=== PATIENT | male | born 1950 | race Caucasian/White ===

== ENCOUNTER 2016-10-23 08:59 | Observation (INO) | payer OTHER, BC ==
--- NOTE | 2016-10-23 09:18 | CPEKG ---
Heart Rate: 109 RR Interval: 550 QRSD Interval: 96 QT Interval: 344 QTC Interval: 464 QRS Bingen: -72 T Wave Bingen: 24 EKG Severity - ABNORMAL ECG - EKG Impression: ATRIAL FIBRILLATION, V-RATE 83-130 EKG Impression: LEFT ANTERIOR FASCICULAR BLOCK Electronically Signed By: Fatimah Sy 23-Oct-2016 15:02:38
[2016-10-23 09:26] LABS: % IMMATURE GRANULYOCYTES 0.3 % (0.0-1.1); ABSOLUTE IMMATURE GRANULOCYTES 0.02 10^3/uL (0.00-0.10); ADD DIFF? NO; ADD MORPH? NO; ADD SCAN? NO; ATYPICAL LYMPHOCYTE FLAG 10 (0-99); FRAGMENT RBC FLAG 0 (0-99); HEMATOCRIT 45.6 % (40.0-51.0); HEMOGLOBIN 15.7 g/dL (13.7-17.5); LEFT SHIFT FLG 0 (0-99); LIPEMIA HEMOLYSIS FLAG 90 (0-99); MEAN CELL HEMOGLOBIN 31.5 pg (27.9-34.1); MEAN CELL HEMOGLOBIN CONCENTR. 34.4 g/dL (32.4-36.7); MEAN CELL VOLUME 91.4 fL (81.5-99.8); MEAN PLATELET VOLUME 9.7 fL (8.7-11.7); PLATELET CLUMPS FLAG 0 (0-99); PLATELET COUNT 213 10^3/uL (150-400); RED BLOOD CELL COUNT 4.99 10^6/uL (4.40-6.38); RED CELL DISTRIBUTION WIDTH 12.8 % (11.5-15.2)
--- NOTE | 2016-10-23 09:30 | EDPHY ---
H & P Time Seen by Provider: 10/23/16 09:27 HPI/ROS: CHIEF COMPLAINT: Palpitations HISTORY OF PRESENT ILLNESS: The patient is a 66-year-old male presenting with palpitations for the past 3 hours. Associated with vague and persistent epigastric pain. No other assoc sx and no known allev/aggrev factors. The patient has felt palpitations in the past and the palpitations resolve spontaneously within 10-20 minutes. He states his blood pressure has been elevated for the past month. He was on blood pressure medication 10 years ago, but has been off BP meds for years. He denies shortness of breath, dizziness, or chest pain. REVIEW OF SYSTEMS: A comprehensive 10 point review of systems is otherwise negative aside from elements mentioned in the history of present illness. Past Medical/Surgical History: High cholesterol, Ortho surgeries. Social History: PCP: Dr. Lopez Smoking Status: Former smoker Physical Exam: General Appearance: Alert, pleasant Eyes: Pupils equal and round, no conjunctival pallor or injection ENT, Mouth: Mucous membranes moist Neck: Normal inspection Respiratory: Lungs are clear to auscultation Cardiovascular: Irregularly irregular, tachycardic Gastrointestinal: Abdomen is soft and non-tender Neurological: A&O, nonfocal, normal gait Skin: Warm and dry, no rash Extremities: Nontender, no pedal edema Psychiatric: Mood and affect normal Constitutional: Initial Vital Signs Temperature (C) 36.6 C 10/23/16 09:03 Heart Rate 100 10/23/16 09:03 Respiratory Rate 20 10/23/16 09:03 Blood Pressure 161/93 H 10/23/16 09:03 O2 Sat (%) 94 10/23/16 09:03 O2 Delivery Mode Room Air Allergies/Adverse Reactions: No Known Allergies Allergy (Verified 10/23/16 09:02) Home Medications: Medication Instructions Recorded LAMOTRIGINE 10/23/16 SIMVASTATIN 10/23/16 Medical Decision Making - Diagnostics EKG Interpretation: The 12 lead EKG was interpreted by myself. See hard copy and/or "tracemaster" electronic copy for interpretation: Atrial fibrillation, ventricular rate 109. Imaging: Discussed imaging studies w/ call center nurse Radiologist ED Course/Re-evaluation: This pt presents in rapid Afib. IV was established, patient received 10mg Diltiazem IV. Chest x-ray is pending. CBC, BMP, and Troponin ordered. HR is in the upper 90s. Chest x-ray shows nothing acute. Lab work is unremarkable. Troponin is pending. I spoke to the hospitalist team, the patient will be admitted to Dr. Cordero, for acute rapid A-fib. - Data Points Laboratory Results: Laboratory Results 10/23/16 09:20 10/23/16 09:20 10/23/16 10/23/16 10/23/16 09:20 09:20 09:20 WBC 7.47 10^3/uL 10^3/uL (3.80-9.50) RBC 4.99 10^6/uL 10^6/uL (4.40-6.38) Hgb 15.7 g/dL g/dL (13.7-17.5) Hct 45.6 % % (40.0-51.0) MCV 91.4 fL fL (81.5-99.8) MCH 31.5 pg pg (27.9-34.1) MCHC 34.4 g/dL g/dL (32.4-36.7) RDW 12.8 % % (11.5-15.2) Plt Count 213 10^3/uL 10^3/uL (150-400) MPV 9.7 fL fL (8.7-11.7) Neut % (Auto) 57.8 % % (39.3-74.2) Lymph % (Auto) 24.9 % % (15.0-45.0) Pine % (Auto) 7.8 % % (4.5-13.0) Eos % (Auto) 8.4 % H % (0.6-7.6) Baso % (Auto) 0.8 % % (0.3-1.7) Nucleat RBC Rel Count 0.0 % % (0.0-0.2) Absolute Neuts (auto) 4.32 10^3/uL 10^3/uL (1.70-6.50) Absolute Lymphs (auto) 1.86 10^3/uL 10^3/uL (1.00-3.00) Absolute Monos (auto) 0.58 10^3/uL 10^3/uL (0.30-0.80) Absolute Eos (auto) 0.63 10^3/uL H 10^3/uL (0.03-0.40) Absolute Basos (auto) 0.06 10^3/uL 10^3/uL (0.02-0.10) Absolute Nucleated RBC 0.00 10^3/uL 10^3/uL (0-0.01) Immature Gran % 0.3 % % (0.0-1.1) Immature Gran # 0.02 10^3/uL 10^3/uL (0.00-0.10) Sodium 142 mEq/L mEq/L (134-144) Potassium 4.3 mEq/L mEq/L (3.5-5.2) Chloride 104 mEq/L mEq/L (97-110) Carbon Dioxide 26 mEq/l mEq/l (22-31) Anion Gap 12 mEq/L mEq/L (8-16) BUN 18 mg/dL mg/dL (7-23) Creatinine 0.6 mg/dL L mg/dL (0.7-1.3) Estimated GFR > 60 Glucose 100 mg/dL mg/dL (70-100) Calcium 10.0 mg/dL mg/dL (8.5-10.4) Troponin I Pending Medications Given: Discontinued Medications Diltiazem HCl (Cardizem 25 Mg/5 Ml Vial) 10 mg IVP EDNOW ONE Stop: 10/23/16 09:41 Last Admin: 10/23/16 09:53 Dose: 10 mg Departure - Departure Disposition: [facility] Inpatient Acute Clinical Impression: Rapid atrial fibrillation Condition: Good Report Scribed for: Fatimah Sy Report Scribed by: Katarina Stewart Date of Report: 10/23/16 Time of Report: 09:30 Physician Review and Approval Statement: 10/23/16 09:30 Portions of this note were transcribed by a medical care manager. I personally performed the history, physical exam, and medical decision-making; and confirmed the accuracy of the information in the transcribed note.
[2016-10-23] MEDS ORDERED: DILTIAZEM 25 MG/5 ML VIAL IVP ONE ×2 (09:40→10:12)
[2016-10-23 09:44] LABS: ANION GAP 12 mEq/L (8-16); CARBON DIOXIDE 26 mEq/l (22-31); CHLORIDE 104 mEq/L (97-110); CREATININE 0.6 mg/dL (0.7-1.3); GLOMERULAR FILTRATION RATE > 60; GLUCOSE 100 mg/dL (70-100); POTASSIUM 4.3 mEq/L (3.5-5.2); SODIUM 142 mEq/L (134-144)
[2016-10-23] MEDS ORDERED: DILTIAZEM 125 MG in D5W 125 ML IV ONE (10:06)
[2016-10-23] MEDS ORDERED: ASPIRIN 81 MG CHEWABLE TAB PO ONE (10:27)
[2016-10-23] MEDS ORDERED: ACETAMINOPHEN 325 MG TAB PO PRN (11:13)
[2016-10-23] MEDS ORDERED: ONDANSETRON 4 MG/2 ML VIAL IVP PRN (11:13)
[2016-10-23] MEDS ORDERED: ONDANSETRON DISINTEGRATING 4 MG TAB PO PRN (11:13)
[2016-10-23] MEDS ORDERED: DILTIAZEM 125 MG in D5W 125 ML IV SCH (11:30)
--- NOTE | 2016-10-23 15:01 | ECHO ---
[id number] + + [address] : : [place] [address] : : [phone] + Adult Echocardiographic Report + ---+ :Name: HELGA PROCTOR HStudy Date: 10/23/2016 01:35 PM : : Hospital Admission Number: [id number] Location: 200: :: 1950 Gender: Male Height: 73 in : :Age: 66 yrs Race: WH Weight: 250 lb : :Reason For Study: Eval LV Fx : : BSA: 2.4 meters2 : :History: New onset A-fib : + ---+ MMode/2D Measurements \T\ Calculations IVSd: 1.3 cm LVIDd: 5.1 cm FS: 38.5 % Ao root diam: 3.8 cm LVPWd: 1.5 cm LVIDs: 3.1 cm EDV(Teich): 123.4 ml ACS: 1.8 cm ESV(Teich): 38.9 ml EF(Teich): 68.5 % Normal Measurement Values: + + :LVIDd (3.5-5.7cm) IVSd (0.6-1.1cm) LVPWd (0.6-1.1cm) Aortic Root (2.0-3.7cm)Left Atrium (1.5-4.0cm): :LV Vol(d) (76-115ml) LV Vol(s) (29-48ml) Ejec Fraction (50-65%)PV Howie (0.6- 1.2m/s) TV Howie (0.4-1.0m/s) : :MV E Howie (0.8-1.0m/s)MV A Howie (0.3-1.0m/s)LVOT Howie (0.7-1.2m/s) Asc Ao Howie ( 0.9-1.8m/s) : + + Doppler Measurements \T\ Calculations MV E max howie: Ao V2 max: LV V1 max: PA V2 max: 92.8 cm/sec 138.5 cm/sec 75.5 cm/sec 82.8 cm/sec Ao max P.7 mmHg LV V1 max PG: PA max P.3 mmHg 2.7 mmHg Left Ventricle The left ventricle is normal in size. There is mild concentric left ventricular hypertrophy. The left ventricular ejection fraction is normal. There is Doppler evidence for diastolic dysfunction. Ejection Fraction = 68%. Right Ventricle The right ventricle is normal in size and function. Atria The left atrial size is normal. Right atrial size is normal. Mitral Valve The mitral valve is normal in structure and function. There is no evidence of mitral valve prolapse. There is no mitral valve stenosis. There is no mitral regurgitation noted. Tricuspid Valve Normal tricuspid valve. No tricuspid regurgitation. Aortic Valve The aortic valve is not well visualized. There is no aortic stenosis. There is no aortic insufficiency. Pulmonic Valve The pulmonic valve is not well visualized. There is no pulmonic valvular regurgitation. Great Vessels The aortic root is normal size. Pericardium/Pleural There is no pericardial effusion. Conclusion A complete two-dimensional transthoracic echocardiogram was performed (2D, M-mode, Doppler and color flow Doppler). 1. Study recorded in an irregular rhythm. 2. The left ventricle is normal in size. There is mild concentric left ventricular hypertrophy. The Ejection Fraction = 68%. 3. The mitral valve is normal in structure and function. 4. The aortic valve is not well visualized. There is no aortic stenosis. There is no aortic insufficiency. 5. There is no pericardial effusion. 6. No old studies for comparison. Final Reading Physician: Helga Regalado MD electronically signed on 10/23/2016 03:00 PM Ordering Physician: Kasey Cordero Performed By: Neri Covarrubias, CS
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
[2016-10-23] MEDS: ENOXAPARIN 100 MG/ML SYR SC SCH (20:53)
[2016-10-23] MEDS: AZELASTINE HCL NS SCH (20:53)
[2016-10-23] MEDS: FLUTICASONE NASAL 120 SPRAYS/16 GM MDI NS SCH (20:54)
[2016-10-24 04:44] LABS: ANION GAP 9 mEq/L (8-16); CALCIUM 9.6 mg/dL (8.5-10.4); CARBON DIOXIDE 26 mEq/l (22-31); CHLORIDE 103 mEq/L (97-110); CREATININE 0.6 mg/dL (0.7-1.3); GLOMERULAR FILTRATION RATE > 60; GLUCOSE 102 mg/dL (70-100); POTASSIUM 4.4 mEq/L (3.5-5.2); SODIUM 138 mEq/L (134-144)
[2016-10-24] MEDS: CHOLECALCIFEROL VIT D3 1,000 UNITS TAB PO SCH (08:08)
[2016-10-24] MEDS: ATORVASTATIN CALCIUM 10 MG TAB PO SCH (08:09)
[2016-10-24] MEDS: DILTIAZEM 30 MG TAB PO SCH ×4 (08:09→23:42)
[2016-10-24] MEDS: lamoTRIgine 100 MG TAB PO SCH (08:11)
[2016-10-24] MEDS: FLUTICASONE NASAL 120 SPRAYS/16 GM MDI NS SCH ×2 (08:12→20:41)
[2016-10-24] MEDS: AZELASTINE HCL NS SCH ×2 (08:12→20:41)
[2016-10-24] MEDS: ENOXAPARIN 100 MG/ML SYR SC SCH ×2 (08:13→20:40)
[2016-10-24] MEDS ORDERED: NON-FORMULARY NEW DRUG (Simvastatin [Zocor] 20 MG) PO SCH (09:00)
[2016-10-24] MEDS ORDERED: Herbals/Supplements -Info Only PO SCH (09:00)
--- NOTE | 2016-10-24 11:38 | HOSPPROG ---
Hospitalist Progress Note Assessment/Plan: #Atrial fibrillation: still in fib this morning. Transition to PO today. CHADSVASC2. I have spoken with he and several times and he is opting for coumadin -cont Lovenox while here. Plan for LANA-cardioversion in the morning #Benign HTN: has not been on meds for several years #Diet: regular #DVT: Lovenox, coumadin #Disp: warrant inpt admission with a fib, telemetry and cardioversion in morning Time spent counseling patient and on treatment options, 40 min Subjective: feels better, but still feels skipping beats Objective: Vital Signs Temp Pulse Resp BP Pulse Ox 36.5 C 90 12 135/92 H 95 10/24/16 07:15 10/24/16 08:09 10/24/16 07:15 10/24/16 08:09 10/24/16 07:15 Laboratory Results 10/24/16 03:12 10/23/16 10/24/16 10/25/16 05:59 05:59 05:59 Intake Total 228.8 Balance 228.8 - Physical Exam Constitutional: no apparent distress Eyes: PERRL Ears, Nose, Mouth, Throat: moist mucous membranes Cardiovascular: irregularly irregular, edema (no edema) Respiratory: no respiratory distress, no rales or rhonchi Gastrointestinal: normoactive bowel sounds Genitourinary: no bladder fullness Skin: warm Musculoskeletal: full muscle strength Neurologic: AAOx3 Psychiatric: interacting appropriately ICD10 Worksheet Patient Problems: Problems Problem Status Onset Rapid atrial fibrillation Acute
[2016-10-24 14:07] LABS: INR 1.02 (0.83-1.16); PROTIME(PATIENT) 13.3 SEC (12.0-15.0)
[2016-10-24 14:08] LABS: APTT 39.2 SEC (23.0-38.0)
[2016-10-24] MEDS ORDERED: WARFARIN SODIUM 5 MG TAB PO SCH (16:00)
[2016-10-25 04:21] LABS: INR 1.12 (0.83-1.16); PROTIME(PATIENT) 14.3 SEC (12.0-15.0)
[2016-10-25] MEDS: DILTIAZEM 30 MG TAB PO SCH (06:19)
[2016-10-25] MEDS ORDERED: DILTIAZEM CD 120 MG CAP PO SCH (09:00)
[2016-10-25] MEDS ORDERED: ETOMIDATE 20 MG/10 ML VIAL IVP ONE (09:03)
[2016-10-25] MEDS ORDERED: PROPOFOL 200 MG/20 ML VIAL IVP ONE (09:03)
[2016-10-25] MEDS ORDERED: NS 500 ML IV ONE (09:03)
[2016-10-25] MEDS ORDERED: fentaNYL 100 MCG/2 ML INJ IVP ONE (09:03)
[2016-10-25] MEDS ORDERED: MIDAZOLAM 2 MG/2 ML VIAL IVP ONE (09:03)
[2016-10-25] MEDS ORDERED: LIDOCAINE 1% 5 ML SDV ONE (09:16)
[2016-10-25] MEDS ORDERED: PROPOFOL 200 MG/20 ML VIAL ONE (09:16)
[2016-10-25] MEDS: ENOXAPARIN 100 MG/ML SYR SC SCH (09:45)
[2016-10-25] MEDS ORDERED: ATROPINE SULFATE 1 MG/10 ML SYR ONE (09:52)
--- NOTE | 2016-10-25 10:11 | GCON ---
[f rep st] CONSULTATION CARDIOLOGY CONSULTATION CHIEF COMPLAINT: Fast heartbeat. The patient is a gentleman who has come to the hospital with a rapid heartbeat. He is 66 years old. He has a history of intermittent atrial fibrillation in the past. With his atrial fibrillation, he has had feelings of just being uncomfortable. It is rapid AFib. He has had it 4 or 5 times in the past over the years, and during those times, it would last less than 5 minutes, often less than a mi nute. It never bothered him, but this time, it lasted for an hour or so, so he came into the emerge ncy room and was admitted with atrial fibrillation. He was rate controlled and he is doing fine. T he plan is for him to have LAAN and cardioversion this morning. He does not have chest pain, jaw pain, or arm pain. No pleuritic chest pain. No fever, chills, cou gh. No syncope or near-syncope. No hot, swollen joints. No rashes, photophobia, stiff neck, sore throat. No dysphagia or hoarseness. No trauma. He has a long-time history of sleep apnea. Ten years ago, he was wearing a mask for a year and a haley lf, then he felt that he did not need it any more. Then 5 years ago, he got checked again. He was told he had sleep apnea, but as long as he did not sleep on his back, he would be fine. He did stop the mask at that time, has gone 5 years without it, and just recently he has decided to get another sleep study and feels like he probably needs a mask. He does have urinary frequency at night, and he is seeing Dr. Gross about that. He has, among other issues, a constriction at the end of the urethra. He does not have BPH. He does not have upper respiratory tract symptoms. Has not had hot, swollen joints. No major rashe s. No DVT. No risk factors for DVT. No history of pulmonary embolism. He has no nausea, vomiting, diarrhea, or constipation. He has no lightheadedness. CARDIAC RISK FACTORS: Positive for hypertension recently. Cardiac risk factors are negative for fa adriano history of premature coronary artery disease, diabetes mellitus, hyperuricemia, smoking history , obesity, or dyslipidemia. He has no known coronary artery disease. PAST MEDICAL HISTORY: FAMILY HISTORY: He has no family history of premature coronary artery disease. No history of unexp lained sudden at a young age. MEDICATIONS: Listed in the computer, and currently, he is on both Coumadin and Lovenox here. The Genticeluter is down at this time. ALLERGIES: None. SURGICAL HISTORY: As noted in the chart and not repeated here. REVIEW OF SYSTEMS: A 12-point review of systems done and is negative except as noted above. SOCIAL HISTORY: He was born in [place], [place]. He is retired. 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 His hiram brown worked there. They have a place in a country up in [place], [place] [address] [place] 2[place], and they go up there a lot, enjoy it. When he is up there, he can exercise. He has no chest pain or chest discomfort. They have 2 children, a 29-year-old son who lives at home and a 31-year-old daughter in [place]. He does not smoke. He does not drink significant amounts of alcohol. PHYSICAL EXAMINATION: VITAL SIGNS: Blood pressure 110/70, heart rate 66, respiratory rate 12, temp erature 98. HEENT: Pupils equal, round, and reactive. Mucous membranes and mouth moist. NECK: S upple. CARDIOVASCULAR: S1, S2. Soft systolic murmur in left sternal border. Irregularly irregula r. No rubs. LUNGS: Rhonchi bilaterally. No rales, wheezing, or dullness. ABDOMEN: Soft, nonten vinayak, without masses. CVA: No tenderness. SKIN: Age-related changes. EXTREMITIES: No edema, inf lammation, or ulceration. NEURO: 2-12 grossly normal. Motor and sensory intact. PSYCH: No obvio us anxiety or depression. LABS: Attached. The patient's monitor shows atrial fibrillation. I cannot read his EKGs because of MediW[employer] being down right at this time. ASSESSMENT AND PLAN: 1. Atrial fibrillation. 2. Hypertension. 3. Sleep apnea. He has atrial fibrillation. We will do a LANA and cardioversion. I have talked to him and his , and they both understand there is a risk despite his anticoagulation, despite PE, that he can have a stroke. They accept that risk and want to proceed. We could easily continue with rate control an d cardiovert him in 5 weeks, however they would like to proceed, and we will cardiovert him now. He has been n.p.o. At some point, he will need risk stratification, and I would arrange for an outpatient stress test. It sounds to me like he has sleep apnea. It is a problem he is going to address. I think it is freeman y important to get this fixed. We talked about it extensively here today. He has been having hypertension the last several times that he has had his blood pressure checked. We want to keep his blood pressure below 135/85, and when he came into the hospital, it was above 14 5. This is something that will be monitored as an outpatient. He will be referred back to his [facility] doctor. If he should have significantly high blood pressure while he is here, we could sta rt treatment. At this time, all of his questions have been answered. We will proceed with cardioversion and LANA at the appropriate right time. /[id number]/MODL
--- NOTE | 2016-10-25 10:27 | CPR ---
[f rep st] NONINVASIVE CARDIAC PROCEDURE REPORT PROCEDURE PERFORMED: Cardioversion. DESCRIPTION OF PROCEDURE: The patient gave informed consent for LANA and cardioversion. With Anesthesia present, we proceeded to pass the probe without any complications into the esophagus . Imaging of the heart commenced, and we could never see the left atrial appendage very clearly. We t ried multiple positions, including to put the patient in a left lateral decubitus position to try to open up the left atrial appendage, and on the images it was never clearly seen, and no Doppler velo cities were found. We therefore finished the transesophageal echocardiographic study but did not pr oceed with cardioversion. PLAN: The patient will be discharged home and will continue with twice-a-day Lovenox until his INR is greater than 2 and then continue on Coumadin. The patient will see Dr. Elias in 4 weeks. All questions have been answered. /[id number]/MODL
[2016-10-25 11:48] VITALS: BP 110/82; PULSE 81; RESP 16; TEMP 98; O2SAT 91
[2016-10-25] MEDS: lamoTRIgine 100 MG TAB PO SCH (12:48)
[2016-10-25] MEDS: ATORVASTATIN CALCIUM 10 MG TAB PO SCH (12:48)
[2016-10-25] MEDS: CHOLECALCIFEROL VIT D3 1,000 UNITS TAB PO SCH (12:48)
[2016-10-25] MEDS: AZELASTINE HCL NS SCH (12:49)
[2016-10-25] MEDS: FLUTICASONE NASAL 120 SPRAYS/16 GM MDI NS SCH (12:50)
--- NOTE | 2016-10-25 16:23 | PDDCSUM ---
Discharge Summary Discharge Summary: DISCHARGE SUMMARY FOLLOW-UP ITEMS: Follow-up INR this Monday, get outpatient stress test and miri with DC cardioversion in 4 weeks DATE OF ADMISSION: 10/23/2016 DATE OF DISCHARGE: 10/25/2016 DISCHARGE DIAGNOSES: 1. Persistent atrial fibrillation with acute rapid ventricular response 2. Chronic hypertension CONSULTATIONS: Cardiology PROCEDURES / IMAGING: Transesophageal echocardiogram without good visualization of the left atrial appendage, no DC cardioversion performed CHIEF COMPLAINT: Acute shortness of breath and reduced exercise tolerance SUBJECTIVE: Patient reports he is feeling well, is not currently symptomatic from his AFib PHYSICAL EXAM ON DISCHARGE: Systolic blood pressure is 110, heart rate 70, afebrile overnight, satting well on room air, lungs are clear to auscultation bilaterally without any crackles or wheezes, heart rhythm is irregularly irregular without tachycardia LABS ON DISCHARGE: None HOSPITAL COURSE BY PROBLEM: 1. Persistent atrial fibrillation. Patient presented with symptomatic AFib and acute rapid ventricular response, new diagnosis. Is unclear whether his atrial fibrillation was provoked by exercise or it just became more symptomatic with exercise secondary to reduced cardiac output. He was evaluated by the cardiology service and the plan was to perform a MIRI with DC cardioversion, which extended his hospitalization. The procedure did not visualize left atrial appendage well and it was decided that he should be safely anticoagulated for 4 weeks and then pursue the procedure. He should also have outpatient evaluation for ischemia with a stress test. Should be noted that the patient's rate did respond well to IV diltiazem continuous infusion and he was transitioned over to an oral diltiazem regimen. His heart rate was in the 70-90 range with 120 mg of diltiazem continuous dosing. He will be discharged home on this dosage with Coumadin, no Lovenox bridge given that his chads Vasc score is 2 indicating that systemic anticoagulation is indicated but there is not an absolute indication for bridging therapy at this time. The patient will resume regular physical activity but will hold on significant physical exertion until he has followed and discussed with Dr. Elias. 2. Hypertension. Chronic, patient is now currently receiving diltiazem, advised the patient's did keep a blood pressure log. DISCHARGE MEDICATIONS: Please see official discharge medication reconciliation sheet in chart , diltiazem 120 mg continuous dosing once daily, Coumadin 5 mg daily. DISCHARGE INSTRUCTIONS: Patient should follow up at his [facility] this Monday, Dr. Elias thereafter. TIME SPENT: Greater than 30 minutes were spent on direct patient care, as well as discharge planning and preparation.
--- NOTE | 2016-10-26 18:02 | CPIP ---
[f rep st] INVASIVE CARDIAC PROCEDURE PROCEDURE PERFORMED: Transesophageal echocardiogram. DESCRIPTION OF PROCEDURE: The patient gave informed consent for transesophageal echocardiographic s tudy and for cardioversion. I explained to him the options and the risks and he wanted to proceed. With the anesthesia present, we passed the probe without any complications. Imaging of the heart co mmenced and we could not see the left atrial appendage clearly. We tried multiple positions, includ ing turning the patient in the left lateral decubitus position to try to open up the left atrial cira endage. It was never clearly seen and no Doppler velocities could be documented that were acceptabl e. Therefore, I did not proceed with the planned cardioversion. I explained the results to the migue cruz and his and I explained our plan of therapy. All their questions were answered. The plan at this point is the patient is going to be discharged and be taking Lovenox twice a day un til the INR is greater than 2 and continue on Coumadin. Follow up with Dr. Elias. Please see the attached transesophageal echocardiographic report that is also included in this repor t. /[id number]/MODL
== END 2016-10-25 15:19 | disposition home or self-care (01) ==
LOC: F2W 12:20
PROVIDERS: ADMIT Internal Medicine; ATTEND Internal Medicine
PROC: B245ZZ4 Ultrasonography of Left Heart, Transesophageal (ICD-10-PCS; principal; 2016-10-23)
DX: I48.91 Unspecified atrial fibrillation (principal); I10 Essential (primary) hypertension; G47.33 Obstructive sleep apnea (adult) (pediatric); Z87.891 Personal history of nicotine dependence
CPT/HCPCS: 71020; 93005; 93306; G0378; J0461; J1650; J2704

== ENCOUNTER 2016-12-06 04:52 | Emergency (ER) | payer OTHER, BC ==
[2016-12-06] MEDS ORDERED: ACETAMINOPHEN 500 MG TAB PO ONE (05:05)
[2016-12-06] MEDS ORDERED: NS 1,000 ML IV ONE ×2 (05:16→05:17)
--- NOTE | 2016-12-06 05:26 | EDPHY ---
H & P Stated Complaint: fever Time Seen by Provider: 12/06/16 05:04 HPI/ROS: HPI The patient presents with fever that has been present for the last 2 days as high as 104. His fever has been intermittent. This is associated with a general feeling of malaise and myalgias. About 1 year ago he had a urinary tract infection. He denies any irritative voiding symptoms currently. He does not have a cough, vomiting, diarrhea, rash. He denies any recent travel or sick contacts. He did get a few mosquito bites the other day. REVIEW OF SYSTEMS Constitutional: See HPI Eyes: No discharge. ENT: No sore throat. Cardiovascular: No chest pain, no palpitations. Respiratory: No cough, no shortness of breath. Gastrointestinal: No abdominal pain, no vomiting. Genitourinary: No hematuria. Musculoskeletal: No back pain. Skin: No rashes. Neurological: No headache. PMHx: Atrial fibrillation with recent hospital admission, on Coumadin, hypertension Soc Hx: Lives at home with his PHYSICAL General Appearance: Alert, no distress Eyes: Pupils equal and round no pallor or injection ENT, Mouth: Mucous membranes moist Respiratory: There are no retractions, lungs are clear to auscultation Cardiovascular: Regular rate and rhythm Gastrointestinal: Abdomen is soft and non-tender, no masses, bowel sounds normal Neurological: A&O, moves all extremities Skin: Warm and dry, no rashes Musculoskeletal: Neck is supple non tender Extremities: symmetrical, full range of motion Psychiatric: Patient is oriented X 3, there is no agitation Source: Patient Exam Limitations: No limitations - Personal History Current Tetanus/Diphtheria Vaccine: Yes Tetanus Vaccine Date: < 10 years - Medical/Surgical History Hx Asthma: No Hx Chronic Respiratory Disease: No Hx Diabetes: No Hx Cardiac Disease: No Hx Renal Disease: No Hx Cirrhosis: No Hx Alcoholism: No Hx HIV/AIDS: No Hx Splenectomy or Spleen Trauma: No Other PMH: PSHx: left knee surgery, colonoscopies, endoscopies, right hand surgery. PMHx: high cholesterol - Social History Smoking Status: Former smoker Constitutional: Initial Vital Signs Temperature (C) 39.1 C H 12/06/16 04:56 Heart Rate 99 12/06/16 04:56 Respiratory Rate 16 12/06/16 04:56 Blood Pressure 125/63 H 12/06/16 04:56 O2 Sat (%) 91 L 12/06/16 04:56 O2 Delivery Mode Room Air Allergies/Adverse Reactions: No Known Allergies Allergy (Verified 10/23/16 09:02) Home Medications: Medication Instructions Recorded Azelastine HCl 1 spray NS BID 10/23/16 Cholecalciferol Vit D3 [Vitamin D3 1,000 units PO DAILY 10/23/16 (*)] FLUTICASONE PROPIONATE 1 spray NS BID 10/23/16 Herbals/Supplements -Info Only 1 ea PO DAILY 10/23/16 LAMOTRIGINE 200 mg PO DAILY 10/23/16 SIMVASTATIN [Zocor] 20 mg PO DAILY 10/23/16 Diltiazem Cd [Cardizem ER 120 MG 120 mg PO DAILY #30 cap 10/25/16 (*)] Warfarin Sodium 5 mg PO DAILY16 #30 tablet 10/25/16 levOFLOXACIN [levAQUIN (*)] 500 mg PO DAILY #14 tab 12/06/16 Medical Decision Making - Diagnostics Imaging Results: Chest x-ray two view shows no infiltrate, no effusion, interpreted by me, radiology interpretation is pending. Differential Diagnosis: This is a 66-year-old man with atrial fibrillation and hypertension who presents from home with several days of fever as high as 104. He has myalgias and generalized malaise, though does not have any other localizing signs or symptoms. Differential diagnosis includes urinary tract infection, pneumonia, viral illness. In the emergency room, the patient received 2 L IV fluid bolus, Tylenol and ibuprofen with improvement in his fever. Labs were checked which did reveal signs of urinary tract infection. I have reviewed his prior urine cultures and will treat him accordingly. I will start him on ceftriaxone here and send him with a prescription for Levaquin. He is feeling well enough to go home. He is followed by a urologist, however cannot recall his name. I instructed him to follow up with the urologist and return to the ER if he is worse in any way. - Data Points Laboratory Results: Laboratory Results 12/06/16 05:24 12/06/16 05:24 12/06/16 12/06/16 12/06/16 05:30 05:24 05:24 WBC RBC Hgb Hct MCV MCH MCHC RDW Plt Count MPV Neut % (Auto) Lymph % (Auto) Antelope % (Auto) Eos % (Auto) Baso % (Auto) Nucleat RBC Rel Count Absolute Neuts (auto) Absolute Lymphs (auto) Absolute Monos (auto) Absolute Eos (auto) Absolute Basos (auto) Absolute Nucleated RBC Immature Gran % Immature Gran # PT 29.9 SEC H SEC (12.0-15.0) INR 2.81 H (0.83-1.16) APTT 44.4 SEC H SEC (23.0-38.0) VBG Lactic Acid Sodium 139 mEq/L mEq/L (134-144) Potassium 3.6 mEq/L mEq/L (3.5-5.2) Chloride 104 mEq/L mEq/L (97-110) Carbon Dioxide 22 mEq/l mEq/l (22-31) Anion Gap 13 mEq/L mEq/L (8-16) BUN 13 mg/dL mg/dL (7-23) Creatinine 0.8 mg/dL mg/dL (0.7-1.3) Estimated GFR > 60 Glucose 127 mg/dL H mg/dL (70-100) Calcium 9.0 mg/dL mg/dL (8.5-10.4) Urine Color REJI Urine Appearance MODERATELY TURBID Urine pH 5.0 (5.0-7.5) Ur Specific Elba 1.024 (1.002-1.030) Urine Protein 2+ H (NEGATIVE) Urine Ketones NEGATIVE (NEGATIVE) Urine Blood 2+ H (NEGATIVE) Urine Nitrate NEGATIVE (NEGATIVE) Urine Bilirubin NEGATIVE (NEGATIVE) Urine Urobilinogen 2.0 EU H EU (0.2-1.0) Ur Leukocyte Esterase 2+ H (NEGATIVE) Urine RBC 50-182 /hpf H /hpf (0-3) Urine WBC 50-182 /hpf H /hpf (0-3) Ur Epithelial Cells TRACE /lpf /lpf (NONE-1+) Urine Bacteria 4+ /hpf H /hpf (NONE SEEN) Urine Mucus 4+ /lpf H /lpf (NONE-1+) Urine Glucose NEGATIVE (NEGATIVE) 12/06/16 12/06/16 05:24 05:24 WBC 10.23 10^3/uL H 10^3/uL (3.80-9.50) RBC 4.59 10^6/uL 10^6/uL (4.40-6.38) Hgb 14.5 g/dL g/dL (13.7-17.5) Hct 41.6 % % (40.0-51.0) MCV 90.6 fL fL (81.5-99.8) MCH 31.6 pg pg (27.9-34.1) MCHC 34.9 g/dL g/dL (32.4-36.7) RDW 12.8 % % (11.5-15.2) Plt Count 139 10^3/uL L 10^3/uL (150-400) MPV 10.1 fL fL (8.7-11.7) Neut % (Auto) 94.6 % H % (39.3-74.2) Lymph % (Auto) 2.8 % L % (15.0-45.0) Antelope % (Auto) 1.5 % L % (4.5-13.0) Eos % (Auto) 0.2 % L % (0.6-7.6) Baso % (Auto) 0.3 % % (0.3-1.7) Nucleat RBC Rel Count 0.0 % % (0.0-0.2) Absolute Neuts (auto) 9.68 10^3/uL H 10^3/uL (1.70-6.50) Absolute Lymphs (auto) 0.29 10^3/uL L 10^3/uL (1.00-3.00) Absolute Monos (auto) 0.15 10^3/uL L 10^3/uL (0.30-0.80) Absolute Eos (auto) 0.02 10^3/uL L 10^3/uL (0.03-0.40) Absolute Basos (auto) 0.03 10^3/uL 10^3/uL (0.02-0.10) Absolute Nucleated RBC 0.00 10^3/uL 10^3/uL (0-0.01) Immature Gran % 0.6 % % (0.0-1.1) Immature Gran # 0.06 10^3/uL 10^3/uL (0.00-0.10) PT INR APTT VBG Lactic Acid 1.2 mmol/L mmol/L (0.7-2.1) Sodium Potassium Chloride Carbon Dioxide Anion Gap BUN Creatinine Estimated GFR Glucose Calcium Urine Color Urine Appearance Urine pH Ur Specific Elba Urine Protein Urine Ketones Urine Blood Urine Nitrate Urine Bilirubin Urine Urobilinogen Ur Leukocyte Esterase Urine RBC Urine WBC Ur Epithelial Cells Urine Bacteria Urine Mucus Urine Glucose Medications Given: Discontinued Medications Acetaminophen (Tylenol) 1,000 mg PO EDNOW ONE Stop: 12/06/16 05:06 Last Admin: 12/06/16 05:17 Dose: 1,000 mg Sodium Chloride (Ns) 1,000 mls @ 0 mls/hr IV ONCE ONE; Wide Open PRN Reason: Protocol Stop: 12/06/16 05:17 Last Admin: 12/06/16 05:25 Dose: 1,000 mls Sodium Chloride (Ns) 1,000 mls @ 0 mls/hr IV ONCE ONE; Wide Open PRN Reason: Protocol Stop: 12/06/16 05:18 Last Admin: 12/06/16 05:30 Dose: 1,000 mls Ceftriaxone Sodium/Dextrose (Rocephin 1 Gm (Premix)) 50 mls @ 100 mls/hr IV EDNOW ONE PRN Reason: Protocol Stop: 12/06/16 07:07 Last Admin: 12/06/16 06:45 Dose: 50 mls Departure - Departure Disposition: Home, Routine, Self-Care Clinical Impression: UTI (urinary tract infection) Qualifiers: Urinary tract infection type: site unspecified Hematuria presence: without hematuria Qualified Code(s): N39.0 - Urinary tract infection, site not specified Condition: Good Instructions: Urinary Tract Infection in Men (ED) Additional Instructions: Please make sure to drink plenty of fluids. You can take ibuprofen 400 mg with acetaminophen 1 g every 6 hours as needed for fever. Take the antibiotic as prescribed. If your worse in any way, please return to the emergency room. Otherwise, you can follow up with your urologist. The antibiotic I am prescribing, may interact with your Coumadin, thus you should have your INR checked while on the medication. Referrals: Eli Ludwig MD [Primary Care Provider] - As per Instructions Prescriptions: levOFLOXACIN [levAQUIN (*)] 500 mg PO DAILY #14 tab
[2016-12-06 05:38] LABS: % IMMATURE GRANULYOCYTES 0.6 % (0.0-1.1); ABSOLUTE IMMATURE GRANULOCYTES 0.06 10^3/uL (0.00-0.10); ADD DIFF? NO; ADD MORPH? NO; ADD SCAN? YES; ATYPICAL LYMPHOCYTE FLAG 0 (0-99); FRAGMENT RBC FLAG 0 (0-99); HEMATOCRIT 41.6 % (40.0-51.0); HEMOGLOBIN 14.5 g/dL (13.7-17.5); LIPEMIA HEMOLYSIS FLAG 90 (0-99); MEAN CELL HEMOGLOBIN 31.6 pg (27.9-34.1); MEAN CELL HEMOGLOBIN CONCENTR. 34.9 g/dL (32.4-36.7); MEAN CELL VOLUME 90.6 fL (81.5-99.8); MEAN PLATELET VOLUME 10.1 fL (8.7-11.7); PLATELET CLUMPS FLAG 0 (0-99); PLATELET COUNT 139 10^3/uL (150-400); RED BLOOD CELL COUNT 4.59 10^6/uL (4.40-6.38); RED CELL DISTRIBUTION WIDTH 12.8 % (11.5-15.2)
[2016-12-06 05:48] LABS: LEFT SHIFT FLG 130 (0-99)
[2016-12-06 05:54] LABS: ANION GAP 13 mEq/L (8-16); CARBON DIOXIDE 22 mEq/l (22-31); CHLORIDE 104 mEq/L (97-110); CREATININE 0.8 mg/dL (0.7-1.3); GLOMERULAR FILTRATION RATE > 60; GLUCOSE 127 mg/dL (70-100); POTASSIUM 3.6 mEq/L (3.5-5.2); SODIUM 139 mEq/L (134-144)
[2016-12-06 06:21] LABS: INR 2.81 (0.83-1.16); PROTIME(PATIENT) 29.9 SEC (12.0-15.0)
[2016-12-06 06:22] LABS: APTT 44.4 SEC (23.0-38.0)
[2016-12-06 06:23] LABS: SCAN NEGATIVE
[2016-12-06 06:35] LABS: COLOR AMBER; LEUKOCYTE ESTERASE,URINE 2+ (NEGATIVE); NITRITE,URINE NEGATIVE (NEGATIVE)
[2016-12-06 06:37] LABS: BACTERIA 4+ /hpf (NONE SEEN); MUCUS 4+ /lpf (NONE-1+); RBC,URINE 50-182 /hpf (0-3); WBC,URINE 50-182 /hpf (0-3)
[2016-12-06 07:39] VITALS: BP 115/65; PULSE 76; RESP 16; TEMP 98.4; O2SAT 92
== END 2016-12-06 07:38 | disposition home or self-care (01) ==
DX: N39.0 Urinary tract infection, site not specified (principal); B96.20 Unspecified Escherichia coli [E. coli] as the cause of diseases classified elsewhere; R53.81 Other malaise; I10 Essential (primary) hypertension; Z79.01 Long term (current) use of anticoagulants; Z87.891 Personal history of nicotine dependence
CPT/HCPCS: 71020; 96361; 96365; 99284; J0696

== ENCOUNTER 2016-12-06 19:00 | Inpatient (IN) | payer OTHER, BC ==
[2016-12-06] MEDS ORDERED: ACETAMINOPHEN 500 MG TAB PO ONE (19:14)
--- NOTE | 2016-12-06 19:32 | EDPHY ---
H & P Stated Complaint: Tx for UTI this am, continued fever today, has urologist Time Seen by Provider: 12/06/16 19:30 - Personal History Current Tetanus/Diphtheria Vaccine: Yes Tetanus Vaccine Date: < 10 years - Medical/Surgical History Hx Asthma: No Hx Chronic Respiratory Disease: No Hx Diabetes: No Hx Cardiac Disease: No Hx Renal Disease: No Hx Cirrhosis: No Hx Alcoholism: No Hx HIV/AIDS: No Hx Splenectomy or Spleen Trauma: No Other PMH: PSHx: left knee surgery, colonoscopies, endoscopies, right hand surgery. PMHx: high cholesterol, afib with RVR - Social History Smoking Status: Former smoker Constitutional: Initial Vital Signs Temperature (C) 37.9 C 12/06/16 19:11 Heart Rate 90 12/06/16 19:11 Respiratory Rate 16 12/06/16 19:11 Blood Pressure 113/67 12/06/16 19:11 O2 Sat (%) 92 12/06/16 19:11 O2 Delivery Mode Room Air Allergies/Adverse Reactions: No Known Allergies Allergy (Verified 10/23/16 09:02) Home Medications: Medication Instructions Recorded Azelastine HCl 1 spray NS BID 10/23/16 Cholecalciferol Vit D3 [Vitamin D3 1,000 units PO DAILY 10/23/16 (*)] FLUTICASONE PROPIONATE 1 spray NS BID 10/23/16 Herbals/Supplements -Info Only 1 ea PO DAILY 10/23/16 LAMOTRIGINE 200 mg PO DAILY 10/23/16 SIMVASTATIN [Zocor] 20 mg PO DAILY 10/23/16 Diltiazem Cd [Cardizem ER 120 MG 120 mg PO DAILY #30 cap 10/25/16 (*)] Warfarin Sodium 5 mg PO DAILY16 #30 tablet 10/25/16 levOFLOXACIN [levAQUIN (*)] 500 mg PO DAILY #14 tab 12/06/16 Medical Decision Making ED Course/Re-evaluation: CHIEF COMPLAINT: Fever HISTORY OF PRESENT ILLNESS: 66-year-old gentleman who was here this morning. Was diagnosed with a urinary tract infection and appropriately given ceftriaxone and oral Levaquin. Later in the day his blood cultures came back with 4+ gram-negative rods turning out to be E coli. We called the patient back to check on him he still was not feeling very well and he was still fairly febrile. He decided to come back for further evaluation. I had a long discussion with the patient and his and he would prefer to be admitted since he is really not feeling well. In addition he has limited ability to take nonsteroidals for his fever since he is on anticoagulants. Also, he was scheduled few weeks ago for a urologic procedure because he is having poor urine flow. Does not appear to be his prostate appears to be some sort of stricture in his urethra. That procedure was postponed because he developed atrial fibrillation needed to be anticoagulated. Most likely the stagnant urine has led to the prostatitis. REVIEW OF SYSTEMS: A 10 point review of systems was performed and is negative with the exception of the elements mentioned in the history of present illness. PHYSICAL EXAM: HR, BP, O2 Sat, RR. Temp noted General Appearance: Alert, well hydrated, appropriate, and non-toxic appearing. Head: Atraumatic without scalp tenderness or obvious injury Eyes: Pupils equal, round, reactive to light and accommodation, EOMI, no trauma , no injection. Ears: Clear bilaterally, no perforation, normal landmarks Nose: Atraumatic, no rhinorrhea, clear. Throat: There is no erythema or exudates, no lesions, normal tonsils, mucus membranes moist. Neck: Supple, 2+ carotid upstroke, nontender, no lymphadenopathy. Respiratory: No retractions, no distress, no wheezes, and no accessory muscle use. Lungs are clear to auscultation bilaterally. Cardiovascular: Regular rate and rhythm, no murmurs, rubs, or gallops. Bilateral carotid, radial, dorsalis pedis, and posterior tibial pulses intact. Good capillary refill all extremities. Gastrointestinal: Abdomen is soft, nontender, non-distended, no masses, no rebound, no guarding, no peritoneal signs. Musculoskeletal: Normal active ROM of all extremities, atraumatic. Neurological: Alert, appropriate, and interactive. The patient has normal DTRs and non-focal cranial nerves, motor, sensory, and cerebellar exam. Skin: No rashes, good turgor, no nodules on palpation. Past medical history: Hypertension, atrial fibrillation although he has been in normal sinus rhythm for 2 weeks Past surgical history: Noncontributory Family history: Noncontributory Social history: , employed, does not abuse tobacco drugs or alcohol DIFFERENTIAL DIAGNOSIS: The differential diagnosis for the patient's fever included but was not limited to pneumonia, urinary tract infection, viral syndrome, meningitis, and sepsis. MEDICAL DECISION MAKING: This patient has positive urine this morning and positive blood cultures that came back this afternoon. He has E coli bacteremia. In addition, he does have a urethral stricture or partial obstruction which will require surgery and most likely is contributing to his propensity to develop infection. Will give him 1 more dose of ceftriaxone now. His last dose was 1g 12 hours ago. We will admit him to the hospitalist with Urology consulting. He sees Dr. Abner Gross. Will call to consult. 20:10 Spoke with hospitalist service. Dr. Washington accepts admission for bacteremia. 20:[address] Crawford, urologist corporation secretary. Urology will consult. - Data Points Medications Given: Discontinued Medications Acetaminophen (Tylenol) 1,000 mg PO EDNOW ONE Stop: 12/06/16 19:15 Last Admin: 12/06/16 19:21 Dose: 1,000 mg Departure - Departure Disposition: [facility] Inpatient Acute Clinical Impression: Prostatitis, acute, E coli bacteremia Urethral stricture Qualifiers: Urethral stricture type: other stricture Qualified Code(s): N35.8 - Other urethral stricture Condition: Fair Referrals: Eli Ludwig MD [Primary Care Provider] - As per Instructions Report Scribed for: Pollo Fabian Report Scribed by: Tejal Hernandez Date of Report: 12/06/16 Time of Report: 20:16
[2016-12-06] MEDS ORDERED: ONDANSETRON 4 MG/2 ML VIAL IVP PRN (20:45)
[2016-12-06] MEDS ORDERED: ONDANSETRON DISINTEGRATING 4 MG TAB PO PRN (20:45)
[2016-12-06] MEDS ORDERED: NS W/ 20 KCl/L 1,000 ML IV SCH (20:45)
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
[2016-12-06] MEDS: AZELASTINE HCL NS SCH (22:18)
[2016-12-07] MEDS: ACETAMINOPHEN 325 MG TAB PO PRN ×3 (00:16→18:53)
[2016-12-07 05:52] LABS: INR 2.38 (0.83-1.16); PROTIME(PATIENT) 26.2 SEC (12.0-15.0)
[2016-12-07 06:02] LABS: ADD MORPH? NO; ADD SCAN? YES; ATYPICAL LYMPHOCYTE FLAG 0 (0-99); FRAGMENT RBC FLAG 0 (0-99); HEMATOCRIT 36.1 % (40.0-51.0); HEMOGLOBIN 12.6 g/dL (13.7-17.5); LIPEMIA HEMOLYSIS FLAG 90 (0-99); MEAN CELL HEMOGLOBIN 31.8 pg (27.9-34.1); MEAN CELL HEMOGLOBIN CONCENTR. 34.9 g/dL (32.4-36.7); MEAN CELL VOLUME 91.2 fL (81.5-99.8); MEAN PLATELET VOLUME 10.3 fL (8.7-11.7); PLATELET CLUMPS FLAG 10 (0-99); PLATELET COUNT 102 10^3/uL (150-400); RED BLOOD CELL COUNT 3.96 10^6/uL (4.40-6.38); RED CELL DISTRIBUTION WIDTH 13.1 % (11.5-15.2)
[2016-12-07 06:17] LABS: LEFT SHIFT FLG 210 (0-99)
[2016-12-07 06:18] LABS: ANION GAP 11 mEq/L (8-16); CARBON DIOXIDE 21 mEq/l (22-31); CHLORIDE 105 mEq/L (97-110); CREATININE 0.7 mg/dL (0.7-1.3); GLOMERULAR FILTRATION RATE > 60; GLUCOSE 105 mg/dL (70-100); MAGNESIUM 1.8 mg/dL (1.6-2.3); POTASSIUM 3.6 mEq/L (3.5-5.2); SODIUM 137 mEq/L (134-144)
[2016-12-07 06:30] LABS: ADD DIFF? YES; SCAN POSITIVE
[2016-12-07 06:36] LABS: PLATELET ESTIMATE DECREASED (ADEQ)
[2016-12-07] MEDS ORDERED: Herbals/Supplements -Info Only PO SCH (09:00)
[2016-12-07] MEDS ORDERED: ENOXAPARIN 40 MG/0.4 ML SYR SC SCH (09:00)
[2016-12-07] MEDS: AZELASTINE HCL NS SCH ×2 (09:16→20:59)
[2016-12-07] MEDS: lamoTRIgine 100 MG TAB PO SCH (09:18)
[2016-12-07] MEDS: DILTIAZEM CD 120 MG CAP PO SCH (09:18)
[2016-12-07] MEDS: ATORVASTATIN CALCIUM 10 MG TAB PO SCH (09:18)
--- NOTE | 2016-12-07 11:13 | SOAPPROG ---
SOAP Progress Note Assessment/Plan: Assessment: Probable E. coli bacteremia, likely of urinary tract source. Plan: No acute intervention is warranted. Full consult to follow. Objective: Vital Signs Temp Pulse Resp BP Pulse Ox 37.8 C 74 24 H 111/54 L 90 L 12/07/16 07:30 12/07/16 07:30 12/07/16 07:30 12/07/16 07:30 12/07/16 07:30 Laboratory Results 12/07/16 05:00 12/07/16 05:00 12/06/16 12/07/16 12/08/16 05:59 05:59 05:59 Output Total 400 Balance -400 PT 26.2 SEC (12.0-15.0) H 12/07/16 05:00 INR 2.38 (0.83-1.16) H 12/07/16 05:00 ICD10 Worksheet Patient Problems: Problems Problem Status Onset E coli bacteremia Acute Prostatitis, acute Acute Urethral stricture Acute Rapid atrial fibrillation Acute
--- NOTE | 2016-12-07 11:27 | HOSPPROG ---
Hospitalist Progress Note Assessment/Plan: #E coli bacteremia: urinary source. No e/o abscess. Awaiting sensitivities. Cont IV CTX. Appreciate ID, urology consult -If sensitive, can DC on FQ #Fever: due to above #Paroxysmal a fib: NSR. Coumadin/Dilt #h/o ureteral stricture: no intervention warranted #Benign HTN: stable #HLD:statin #Diet: regular #DVT ppx: coumadin #Disp: warrants inpatient admission with bacteremia, IV abx. May DC tomorrow Subjective: fatigued Objective: Vital Signs Temp Pulse Resp BP Pulse Ox 37.8 C 74 24 H 111/54 L 90 L 12/07/16 07:30 12/07/16 07:30 12/07/16 07:30 12/07/16 07:30 12/07/16 07:30 Laboratory Results 12/07/16 05:00 12/07/16 05:00 12/06/16 12/07/16 12/08/16 05:59 05:59 05:59 Output Total 400 Balance -400 PT 26.2 SEC (12.0-15.0) H 12/07/16 05:00 INR 2.38 (0.83-1.16) H 12/07/16 05:00 - Physical Exam Constitutional: no apparent distress (sitting up in chair eating breakfast) Eyes: PERRL Ears, Nose, Mouth, Throat: moist mucous membranes, hearing normal Cardiovascular: regular rate and rhythym, no murmur, rub, or gallop Respiratory: no respiratory distress, no rales or rhonchi Gastrointestinal: normoactive bowel sounds, soft, non-tender abdomen Genitourinary: no bladder fullness, no bladder tenderness Skin: warm, normal color Musculoskeletal: full muscle strength Neurologic: AAOx3, CN II-XII Intact Psychiatric: interacting appropriately ICD10 Worksheet Patient Problems: Problems Problem Status Onset E coli bacteremia Acute Prostatitis, acute Acute Urethral stricture Acute Rapid atrial fibrillation Acute
[2016-12-07 15:39] VITALS: RESP 16
[2016-12-07] MEDS ORDERED: WARFARIN SODIUM 5 MG TAB PO SCH (16:00)
--- NOTE | 2016-12-08 01:00 | GCON ---
[f rep st] CONSULTATION DATE OF CONSULTATION: 12/07/2016 REFERRING PHYSICIAN: Rudy Washington MD REASON FOR CONSULTATION: Gram-negative chandrakant bacteremia. HISTORY OF PRESENT ILLNESS: 66-year-old male presents with acute fever with temps as high as 104 for the last couple days. Patient initially presented to the emergency room at 5 a.m. on 12/06 and returned with ongoing fever that evening, and subsequently was found to have gram-negative chandrakant bacteremia and was admitted for observation. Patient reports significant improvement in his symptoms. Patient has received daily doses of ceftriaxone, started 12/06/2016. He was discharged with a course of levofloxacin 500 mg daily, but he has not started this medicine. Patient reports significant improvement in symptoms today and desires discharge today. PAST MEDICAL HISTORY: Urethral narrowing, obstructive sleep apnea, hyperlipidemia, and depression. Atrial fibrillation with recent hospital admission, started on Coumadin. Hyperlipidemia. SOCIAL HISTORY: Former tobacco. He lives at home with his right outside of [place]. PAST SURGICAL HISTORY: Left knee surgery. Right hand surgery. FAMILY HISTORY: Reviewed and noncontributory. ALLERGIES: NKDA. MEDICATIONS: Include azelastine nasal spray, Lipitor 10 mg daily, ceftriaxone 1 g IV daily, Lamictal 200 mg daily, Cardizem 120 mg daily, Zofran as needed, Coumadin alternating doses of 5 and 7.5 daily. REVIEW OF SYSTEMS: : Patient denies increased nocturia, irritative urinary symptoms, decreased urinary output, flank pain. Patient does not perform self- catheterizations. A complete 10-point review of systems was performed and is negative except as mentioned in the HPI. PHYSICAL EXAMINATION: VITAL SIGNS: Blood pressure 111/54, heart rate is 74, respiratory rate 17, saturation 93% on room air. His vital signs have been stable throughout hospital course. His T current is 37.8. T-max is 39. GENERAL: This is a very well-appearing male with fluent speech, sitting up in bed. HEENT: Fair dentition. Moist mucous membranes. NECK: Supple. No lymphadenopathy. CARDIOVASCULAR: Regular rate. No murmurs. Specifically, patient was not in atrial fibrillation. CHEST: Clear to auscultation bilaterally. ABDOMEN: Slightly obese, soft, nontender. Bowel sounds are present. No suprapubic tenderness. : No Mari was in place. EXTREMITIES: No clubbing, cyanosis, or edema. NEUROLOGIC: He is alert and oriented x4. Moving all 4 extremities equally and grossly cranial nerves were intact. LABORATORY DATA: White count 6.6, hematocrit 36, platelets of 102, 59% neutrophils, 28% bands. Creatinine is 0.7. Urinalysis showed 2+ protein, 2+ leukocyte esterase, 50-182 RBCs, 50-182 WBCs. INR was 2.38. IMAGING DATA: Abdominal ultrasound was performed which showed no hydronephrosis of the right kidney. ASSESSMENT AND PLAN: 66-year-old male with a history of urethral stenosis and benign prostatic hypertrophy, presents with fever in the absence of localizing symptoms. Patient subsequently found to have bacteremia with noted pyuria suspicious for urinary source. No evidence of obstruction on abdominal ultrasound. Preliminarily gram-negative chandrakant identified as Escherichia coli. RECOMMENDATIONS: 1. Await susceptibilities of E coli and continue IV ceftriaxone until that time. 2. Would repeat blood cultures tomorrow morning. 3. Likely discharge on p.o. antibiotics if susceptible to fluoroquinolones. 4. Reviewed side effects of fluoroquinolones, including tendinopathy, interactions with cations such as calcium, magnesium and zinc, and interaction with Coumadin with prolonged INR and need for increased monitoring. Patient and his were present during education. Time was 75 minutes, greater than 50% time spent with education and counseling. Thank you for this consultation. Will continue to see on a daily basis. /[id number]/MODL MTDD
[2016-12-08] MEDS: ACETAMINOPHEN 325 MG TAB PO PRN (05:03)
[2016-12-08 05:46] LABS: % IMMATURE GRANULYOCYTES 0.4 % (0.0-1.1); ABSOLUTE IMMATURE GRANULOCYTES 0.02 10^3/uL (0.00-0.10); ADD DIFF? NO; ADD MORPH? NO; ADD SCAN? YES; ATYPICAL LYMPHOCYTE FLAG 0 (0-99); FRAGMENT RBC FLAG 0 (0-99); HEMATOCRIT 36.4 % (40.0-51.0); HEMOGLOBIN 12.7 g/dL (13.7-17.5); LIPEMIA HEMOLYSIS FLAG 90 (0-99); MEAN CELL HEMOGLOBIN 31.8 pg (27.9-34.1); MEAN CELL HEMOGLOBIN CONCENTR. 34.9 g/dL (32.4-36.7); MEAN CELL VOLUME 91.2 fL (81.5-99.8); MEAN PLATELET VOLUME 9.8 fL (8.7-11.7); PLATELET CLUMPS FLAG 0 (0-99); PLATELET COUNT 114 10^3/uL (150-400); RED BLOOD CELL COUNT 3.99 10^6/uL (4.40-6.38)
[2016-12-08 05:55] LABS: INR 1.98 (0.83-1.16); PROTIME(PATIENT) 22.6 SEC (12.0-15.0)
[2016-12-08 06:11] LABS: LEFT SHIFT FLG 160 (0-99)
[2016-12-08 06:52] LABS: SCAN NEGATIVE
[2016-12-08 07:41] VITALS: BP 108/75; PULSE 64; TEMP 98; O2SAT 95
--- NOTE | 2016-12-08 08:50 | HOSPPROG ---
Hospitalist Progress Note Assessment/Plan: #E coli bacteremia: urinary source. No e/o abscess. Awaiting sensitivities. Cont IV CTX. Appreciate ID, urology consult -DC on LQ #Fever: due to above #Paroxysmal a fib: NSR. Coumadin/Dilt. INR check monday with LQ on board #h/o ureteral stricture: no intervention warranted #Benign HTN: stable #HLD:statin #Diet: regular #DVT ppx: coumadin #Disp: DC today Subjective: no acute events Objective: Vital Signs Temp Pulse Resp BP Pulse Ox 36.7 C 64 16 108/75 95 12/08/16 07:40 12/08/16 07:40 12/08/16 00:00 12/08/16 07:40 12/08/16 07:40 Laboratory Results 12/08/16 05:32 12/07/16 12/08/16 12/09/16 05:59 05:59 05:59 Intake Total 2500 Output Total 1600 Balance 900 PT 22.6 SEC (12.0-15.0) H 12/08/16 05:32 INR 1.98 (0.83-1.16) H 12/08/16 05:32 - Physical Exam Constitutional: no apparent distress Eyes: PERRL Ears, Nose, Mouth, Throat: moist mucous membranes, hearing normal Cardiovascular: regular rate and rhythym, no murmur, rub, or gallop Respiratory: no respiratory distress, no rales or rhonchi Gastrointestinal: normoactive bowel sounds, soft, non-tender abdomen Genitourinary: no bladder fullness, no bladder tenderness Skin: warm Musculoskeletal: full muscle strength Neurologic: AAOx3, CN II-XII Intact ICD10 Worksheet Patient Problems: Problems Problem Status Onset E coli bacteremia Acute Prostatitis, acute Acute Rapid atrial fibrillation Acute Urethral stricture Acute
--- NOTE | 2016-12-08 09:22 | PCMIDPN ---
Assessment/Plan: E coli bacteremia, urinary source with likely contribution of underlying anatomic abnormality, urethral stricture. Blood cultures collected this a.m. to demonstrate clearance. Patient does not have to wait for blood cultures for discharge. E coli was shown to be gallagher susceptible -- recommend a total of 14 days of antibiotics. He already has levofloxacin 500 mg (14 tabs), would take 1.5 tablets for 9 days and prescribed 3 more days levofloxacin 750 -- close follow-up in anticoagulation clinic -- follow up with Urology -- no ID follow-up needed although patient provided a contact number for questions regarding side effects of antibiotic Discussed possible side effects of Levofloxacin, including photosensitivity, and interaction with cations including calcium, zinc and magnesium. Patient is also advised to take with small amount food to minimize risk of nausea and avoid significant sun exposure by wearing hat, sunscreen. also reviewed the rare complication of tendinopathy. Review typical side effects of antibiotics, rash, fever, diarrhea. Warned patient to look for warning size of 3 or more loose stools a day and abdominal cramping and risk of C diff Subjective: patient feeling well, no urinary symptoms Objective: Vital Signs Temp Pulse Resp BP Pulse Ox 36.7 C 64 16 108/75 95 12/08/16 07:40 12/08/16 07:40 12/08/16 00:00 12/08/16 07:40 12/08/16 07:40 Laboratory Results 12/08/16 05:32 12/07/16 12/08/16 12/09/16 05:59 05:59 05:59 Intake Total 2500 Output Total 1600 Balance 900 - Physical Exam General Appearance: alert, no apparent distress Respiratory: No accessory muscle use Skin: No rash Neuro/Psych: alert, normal mood/affect, oriented x 3 - Time Spent With Patient Time Spent with Patient: greater than 35 minutes (case was discussed with Dr. Cordero) Time Spent with Patient: Greater than 35 minutes spent on this patients care, greater than 50% of time spent counseling, educating, and coordinating care regarding the above mentioned plan. ICD10 Worksheet Patient Problems: Problems Problem Status Onset E coli bacteremia Acute Prostatitis, acute Acute Urethral stricture Acute Rapid atrial fibrillation Acute
[2016-12-08] MEDS: DILTIAZEM CD 120 MG CAP PO SCH (10:01)
[2016-12-08] MEDS: ATORVASTATIN CALCIUM 10 MG TAB PO SCH (10:01)
[2016-12-08] MEDS: lamoTRIgine 100 MG TAB PO SCH (10:01)
[2016-12-08] MEDS: AZELASTINE HCL NS SCH (10:01)
[2016-12-08] MEDS ORDERED: WARFARIN SODIUM 7.5 MG TAB PO SCH ×2 (16:00)
--- NOTE | 2016-12-08 23:13 | GDS ---
[f rep st] DISCHARGE SUMMARY DISCHARGE DIAGNOSES: 1. Escherichia coli bacteremia with urinary source from underlying anatomic abnormality with urethr al stricture. 2. Atrial fibrillation. HISTORY OF PRESENT ILLNESS: The patient is a 66-year-old male with atrial fibrillation and hyperlip idemia, who presents with acute fever up to 104. Symptoms began 3 days prior and had been intermitt ent since then. He has had increased urinary frequency, myalgias, and headaches. He presented in t he morning of 12/06 and was dosed IV ceftriaxone and given a prescription for Levaquin. He returned to the hospital because he continued to have fevers up to 103. HOSPITAL COURSE PROBLEMS: 1. Escherichia coli bacteremia: Secondary to urinary source with underlying urethral stricture. N o evidence of abscess on ultrasound. He was treated with IV ceftriaxone, transitioned to Levaquin. He is to follow up with his primary urologist, Dr. Gross, to further evaluate his urethral strictur e, which was the likely cause. 2. Fever secondary to #1: This has resolved. 3. Paroxysmal atrial fibrillation: He is currently in normal sinus rhythm. Continue Coumadin and diltiazem. He will follow up with Anticoagulation Clinic on Monday, given interaction with Levaquin . 4. Benign hypertension: Stable. 5. Hyperlipidemia: Statin. DISPOSITION: The patient is stable for discharge. NEW MEDICATIONS: Fluoroquinolone. FOLLOWUP: 1. Dr. Gross. 2. Cardiology. /[id number]/[facility] [place]
[2016-12-09] MEDS ORDERED: WARFARIN SODIUM 5 MG TAB PO SCH (16:00)
== END 2016-12-08 12:10 | disposition home or self-care (01) | DRG 697 ==
LOC: F3E 20:55 → OBSVTOIN 12-07 15:27
PROVIDERS: ADMIT Internal Medicine; ATTEND Internal Medicine
DX: N35.9 Urethral stricture, unspecified (principal); B96.20 Unspecified Escherichia coli [E. coli] as the cause of diseases classified elsewhere; I48.0 Paroxysmal atrial fibrillation; I10 Essential (primary) hypertension; E78.5 Hyperlipidemia, unspecified; G47.33 Obstructive sleep apnea (adult) (pediatric); Z79.01 Long term (current) use of anticoagulants; Z87.891 Personal history of nicotine dependence
CPT/HCPCS: 96365; G0378; J0696

== ENCOUNTER → 2016-12-14 | Outpatient (CLI) | payer OTHER, BC | LOC: FCPNEURO 23:00 | PROVIDERS: ATTEND Psychiatry & Neurology Sleep Medicine | DX: G47.33 Obstructive sleep apnea (adult) (pediatric) (principal); G47.61 Periodic limb movement disorder ==

== ENCOUNTER 2017-04-27 10:11 | Day surgery (SDC) | payer OTHER, BC ==
--- NOTE | 2017-04-26 18:16 | GHP ---
[f rep st] PREOP HISTORY AND PHYSICAL ADMISSION DIAGNOSIS: Meatal stenosis. HISTORY OF PRESENT ILLNESS: This is a gentleman who has had urinary symptoms and he had a hypospadia s repair as a young man. He feels that the tip is scarred down because of his lower urinary tract sy mptoms. He had a first-stage Nevin urethroplasty scheduled in the past, but he had atrial fibrill ation and was anticoagulated. Now he is doing well from that and he is to undergo surgical repair wi th a first-stage Nevin procedure. Indications, complications, options have been discussed and wri tten and verbal consent has been obtained. PAST MEDICAL HISTORY: Hypertension, hypospadias repair, meatal stenosis, urethral stricture. PAST SURGICAL HISTORY: Inguinal hernia and knee surgery. MEDICATIONS: Aspirin, Motrin, simvastatin, vitamins. ALLERGIES: None. FAMILY HISTORY: Diabetes and liver cancer. SOCIAL HISTORY: Alcohol, light consumption. Former smoker. REVIEW OF SYSTEMS: Positive for the atrial fibrillation. He also has urinary frequency. He denies GI, respiratory, cardiovascular events other than the atrial fibrillation and neurologically, he azam es muscular weakness or tingling and there is no bone pain. PHYSICAL EXAMINATION: VITAL SIGNS: Stable. CHEST: Clear. HEART: Regular rate and rhythm. ABDOM EN: Normal. No organomegaly, rebound, or guarding. LOWER EXTREMITIES: Normal. PENILE EXAM: He h as severe meatal stenosis that would not accommodate a scope. At the present time, he has severe meatal stenosis, distal urethral stricture, and he is admitted for a first-stage Nevin urethroplasty. /[id number]/MODL
--- NOTE | 2017-04-27 06:46 | PDHPUP ---
History & Physical Update H&P update statement: This history and physical update is based on an assessment of the patient which was completed after admission or registration (within 24 hours), but prior to the surgery/procedure. H&P update: H&P reviewed & patient examined, no change in patient's condition since H&P completed
[~2017-04-27 10:11] MED LIST: ceFAZolin 2 GM/SWFI 2 GM/20 ML SYR IVP ONE
[2017-04-27] MEDS ORDERED: LR 1,000 ML IV ONE (10:34)
[2017-04-27 10:39] VITALS: PULSE 67
[2017-04-27] MEDS ORDERED: ceFAZolin 2 GM/SWFI 20 ML SYR IVP ONE ×2 (10:42→11:13)
[2017-04-27] MEDS ORDERED: METHYLENE BLUE 0.5% 50 MG/10 ML AMP ONE (10:53)
[2017-04-27] MEDS ORDERED: BUPIVACAINE 0.5% 30 ML SDV ONE (10:53)
[2017-04-27 10:54] LABS: INR 0.99 (0.83-1.16); PROTIME(PATIENT) 13.3 SEC (12.0-15.0)
[2017-04-27] MEDS ORDERED: MIDAZOLAM 2 MG/2 ML VIAL ONE (11:08)
[2017-04-27] MEDS ORDERED: MIDAZOLAM 2 MG/2 ML VIAL IVP ONE (11:08)
--- NOTE | 2017-04-27 11:10 | PDANEPAE ---
ANE Past Medical History - Cardiovascular History Hx Hypertension: Yes Hx Arrhythmias: Yes Hx Chest Pain: No Hx Coronary Artery / Peripheral Vascular Disease: No Hx CHF / Valvular Disease: No Hx Palpitations: No Cardiovascular History Comment: afib- hx of cardioversion 11/2016. stopped warfarin 04/10/[address] Elias. hyperlipidemia - Pulmonary History Hx COPD: No Hx Asthma/Reactive Airway Disease: No Hx Recent Upper Respiratory Infection: No Hx Oxygen in Use at Home: No Hx Sleep Apnea: Yes Sleep Apnea Screening Result - Last Documented: Positive Pulmonary History Comment: moderate jaylin positive- sleeps on side doesn't qualify for cpap - Neurologic History Hx Cerebrovascular Accident: No Hx Seizures: No Hx Dementia: No - Endocrine History Hx Diabetes: No - Renal History Hx Renal Disorders: Yes Renal History Comment: current - Liver History Hx Hepatic Disorders: No - Neurological & Psychiatric Hx Hx Neurological and Psychiatric Disorders: Yes Neurological / Psychiatric History Comment: hx of depression - Cancer History Hx Cancer: Yes Cancer History Comment: skin ca - Congenital Disorder History Hx Congenital Disorders: No - GI History Hx Gastrointestinal Disorders: No - Other Health History Other Health History: wears glasses - Chronic Pain History Chronic Pain: Yes (bilateral knee pain) - Surgical History Prior Surgeries: Left knee surgery- scope. egd's/ colonoscopies. right hand surgery. oral surgery x1 with general. tonsillectomy many years. ago- with ether. hernia repair 20 yrs ago ANE Review of Systems Review of Systems: - Exercise capacity METS (RN): 4 METS ANE Patient History - Allergies Allergies/Adverse Reactions: No Known Allergies Allergy (Verified 04/13/17 12:16) - Home Medications Home Medications: Herbals/Supplements -Info Only 10/23/16 [Last Taken Unknown] LAMOTRIGINE 10/23/16 [Last Taken 12/06/16] SIMVASTATIN [Zocor] 10/23/16 [Last Taken 12/06/16] Warfarin Sodium [Coumadin 5MG (*)] 12/06/16 [Last Taken 04/10/17] Diltiazem Cd [Cardizem ER 120 MG (*)] 04/13/17 [Last Taken Unknown] Fluticasone Nasal 04/13/17 [Last Taken Unknown] LAMOTRIGINE 04/13/17 [Last Taken Unknown] - NPO status NPO Since - Liquids (Date): 04/27/17 NPO Since - Liquids (Time): 07:00 NPO Since - Solids (Date): 04/26/17 NPO Since - Solids (Time): 22:00 - Anes Hx Anes Hx: no prior problems - Smoking Hx Smoking Status: Former smoker - Family Anes Hx Family Hx Anesthesia Complications: none ANE Labs/Vital Signs - Vital Signs Blood Pressure: 139/80 Heart Rate: 67 Respiratory Rate: 18 O2 Sat (%): 94 Height: 185.42 cm Weight: 113.398 kg ANE Physical Exam - Airway Neck exam: FROM Mallampati Score: Class 3 Mouth exam: normal dental/mouth exam - Pulmonary Pulmonary: no respiratory distress, no rales or rhonchi, clear to auscultation - Cardiovascular Cardiovascular: regular rate and rhythym, no murmur, rub, or gallop - ASA Status ASA Status: III ANE Anesthesia Plan Anesthesia Plan: GA w LMA
[2017-04-27] MEDS ORDERED: fentaNYL 100 MCG/2 ML INJ ONE (11:21)
[2017-04-27] MEDS ORDERED: PROPOFOL 200 MG/20 ML VIAL ONE (11:21)
[2017-04-27] MEDS ORDERED: LIDOCAINE 2% JELLY 5 ML TUBE ONE (11:22)
[2017-04-27] MEDS ORDERED: ONDANSETRON 4 MG/2 ML VIAL ONE (11:24)
[2017-04-27] MEDS ORDERED: LIDOCAINE 2% 5 ML SDV ONE (11:24)
[2017-04-27] MEDS ORDERED: DEXAMETHASONE 4 MG/ML VIAL ONE ×2 (11:24)
[2017-04-27] MEDS ORDERED: PHENYLEPHRINE HCL 100 MCG/ML SYR ONE (11:49)
[2017-04-27] MEDS ORDERED: BACITRACIN ZINC 14.2 GM OINTTUBE TP ONE (12:08)
--- NOTE | 2017-04-27 12:30 | POSTOPPROG ---
Post Op Note Date of Operation: 04/27/17 Surgeon: Abner Gross Anesthesiologist: Latesha Anesthesia: LMA Pre-op Diagnosis: stx Procedure: urethroplasty and cysto==dictated Inf/Abcess present in the surg proc area at time of surgery?: No EBL: Minimal Specimen(s): hooks
[2017-04-27] MEDS ORDERED: MEPERIDINE 25 MG/ML SYR IVP PRN (12:39)
[2017-04-27] MEDS ORDERED: ENALAPRILAT DIHYDRATE 1.25 MG/ML VIAL IVP PRN (12:39)
[2017-04-27] MEDS ORDERED: HYDROCODONE/APAP 5/325 TAB PO PRN (12:39)
[2017-04-27] MEDS ORDERED: PROMETHAZINE HCL 25 MG/ML INJ IVP PRN (12:39)
[2017-04-27] MEDS ORDERED: fentaNYL 100 MCG/2 ML INJ IVP PRN (12:39)
[2017-04-27] MEDS ORDERED: ACETAMINOPHEN 500 MG TAB PO PRN (12:39)
[2017-04-27] MEDS ORDERED: ONDANSETRON 4 MG/2 ML VIAL IVP PRN (12:39)
[2017-04-27] MEDS ORDERED: LR 500 ML IV PRN (12:39)
[2017-04-27] MEDS ORDERED: NALOXONE HCL 0.4 MG/ML INJ IVP PRN (12:39)
--- NOTE | 2017-04-27 12:41 | POSTANESTH ---
Post Anesthetic Evaluation Cardiovascular Status: Normal, Stable, Similar to Pre-Op Cond Respiratory Status: Normal, Stable, Similar to Pre-op Cond. Level of Consciousness/Mental Status: Can Participate in Eval, Moderately Sleepy Pain Control: Adequate, Prn Tx Ordered Nausea/Vomiting Control: Adequate, Prn Tx Ordered Complications Possibly Related to Anesthesia: None Noted (No dysrhythmias observed.)
[2017-04-27 13:21] VITALS: RESP 12
--- NOTE | 2017-04-27 14:31 | GOP ---
[f rep st] OPERATIVE REPORT DATE OF OPERATION: 04/27/2017 SURGEON: Abner Gross MD PREOPERATIVE DIAGNOSIS: Severe distal urethral stricture. POSTOPERATIVE DIAGNOSIS: Severe distal urethral stricture. PROCEDURE PERFORMED: First stage Nevin urethroplasty and cystoscopy. FINDINGS: DESCRIPTION OF PROCEDURE: Underwent general anesthesia, and after appropriate time-out, prepped and draped in normal sterile fashion. I tried to pass a 0.035 guidewire into the urethra and that was no t possible. I tried to instill methylene blue into the urethral meatus with a 16-Martiniquais Angiocath un successfully; so, at that point, I placed a penile tourniquet on and made an incision from the meatus down to mid penis. Dissected out the urethra and could eventually identify the scarred graft and sp atulated it to where the opening was approximately a 24-Martiniquais caliber, and then pexed that with a 4- 0 chromic at the apex of the incision. Then cystoscopy revealed normal bladder with no tumor, stones , foreign bodies, or diverticula. The remaining part of the urethra was normal. At that point, reap proximated the edges of the of the urethral plate to the skin. Hemostasis via cauterization and Andrea n sterile dressing was placed after placing a 16 Mari catheter. He will be discharged home with a lizz myrick to see me in the office on Monday for catheter removal. No specimen obtained. No complicati ons. He will be, as noted, discharged home. /[id number]/MODL
[2017-04-27 14:33] VITALS: BP 120/74
[2017-04-27 14:42] VITALS: TEMP 97.5; O2SAT 94
== END 2017-04-27 14:52 | disposition home or self-care (01) ==
LOC: FSGY 10:11
PROVIDERS: ATTEND Specialist
PROC: 0TQD0ZZ Repair Urethra, Open Approach (ICD-10-PCS; principal; 2017-04-27 11:45)
DX: N35.9 Urethral stricture, unspecified (principal)
CPT/HCPCS: 53400; C1758; C1769; J0690; J1100; J2250; J2370; J2405; J2704; J3010; Q9968

== ENCOUNTER 2017-06-13 11:02 | Observation (INO) | payer OTHER, BC ==
--- NOTE | 2017-07-06 09:51 | GHP ---
[f rep st] PREOP HISTORY AND PHYSICAL DATE OF ADMISSION: 07/19/2017 He will be an a.m. admission for surgery at [facility] on July 19, 2017. PROBLEM #1: Right knee arthritis. HISTORY OF PRESENT ILLNESS: The patient is a 67-year-old man admitted for a right total knee arthrop lasty. He has a long history of progressive pain in both knees. He underwent arthroscopic surgery o f his left knee in October of 2014. He has had multiple sets of viscosupplementation injections in his knees. His right knee is now quite painful and limiting his activities. He has failed nonsurgical t reatment. He has advanced medial compartment degenerative arthritis. He will undergo a right total knee arthroplasty. PAST MEDICAL HISTORY: He is treated for elevated cholesterol and depression/mood disorder. In November 2016, he had a single episode of atrial fibrillation. This has reverted to sinus rhythm. He has bee n followed by Dr. Meño Elias and has been approved for surgery. He was on Coumadin from November until March. Recently he has been on 1/2 of a 325 mg aspirin tablet per day. He will stop that 7 days prior to surgery. No history of cardiac stents, DVT, hepatitis, sleep apnea, or bleeding problems. CURRENT MEDICATIONS: Bupropion 150 mg extended-release tablet daily. Cartia XT 120 mg tablet per da y. Lamotrigine 100 mg 2 tablets per day. He is also on simvastatin 20 mg per day. ALLERGIES: Drug allergies: None. Metal allergies: None. Latex allergy: None. SOCIAL HISTORY: The patient is . He is retired. He stopped smoking cigarettes 40 years ago. He drinks 1 or 2 alcoholic drinks per week. FAMILY HISTORY: Positive for diabetes, cancer, arthritis, and hypertension. PHYSICAL EXAMINATION: GENERAL: He is a healthy-appearing man. VITAL SIGNS: Height 6 feet 1 inch. Weight 252 pounds. BMI 33.2. EYES: Conjunctivae and sclerae are clear. Pupils are round and react alexx. MOUTH: Good oral hygiene. No loose teeth. CHEST: Clear. HEART: Regular rhythm. No murmur s. EXTREMITIES: Pertinent findings limited to his right knee. He lacks a couple of degrees of full extension and flexes to 110 degrees. His ligaments are stable. A small effusion is present. He is tender along the medial joint line. IMAGING: His films show advanced medial compartment degenerative arthritis in the right knee. He haley s advanced lateral compartment degenerative arthritis in the left knee. IMPRESSION ON ADMISSION: 1. Bilateral knee degenerative arthritis. The right knee is more symptomatic. He is prepared for a right total knee arthroplasty. 2. History of atrial fibrillation. 3. Treatment for elevated cholesterol. 4. Treatment for depression and/or mood disorder. PLAN: He will undergo a right total knee arthroplasty. The surgery has been described to him, inclu ding the risks, complications, expectations, and recovery time. I have stressed to him the importanc e of postoperative physical therapy. I have described to him that a small percentage of people do no t get a good result with a total knee replacement. All his questions have been answered, and he cons ents to surgery. /[id number]/MODL
[2017-07-19] MEDS ORDERED: NS IV ONE (06:00)
[2017-07-19] MEDS ORDERED: TRANEXAMIC ACID IV ONE (06:00)
[2017-07-19] MEDS ORDERED: POVIDONE-IODINE 20 ML in SODIUM CL IRRIG SOLUTION 500 ML IRR ONE (06:00)
[2017-07-19] MEDS ORDERED: ROPIVACAINE 0.2% 80 MG, EPINEPHrine 0.2 MG, KETOROLAC TROMETHAMINE 30 MG in SYRINGE 0 ML IU ONE (06:00)
[2017-07-19] MEDS ORDERED: FAMOTIDINE 20 MG TAB PO ONE (06:18)
[2017-07-19] MEDS ORDERED: ceFAZolin 2 GM/SWFI 2 GM/20 ML SYR IVP ONE (06:18)
[2017-07-19] MEDS ORDERED: GABAPENTIN 300 MG CAP PO ONE (06:18)
[2017-07-19] MEDS ORDERED: ONDANSETRON 4 MG/2 ML VIAL IVP ONE (06:18)
[2017-07-19] MEDS ORDERED: DEXAMETHASONE 4 MG/ML VIAL IVP ONE (06:18)
[2017-07-19] MEDS ORDERED: ACETAMINOPHEN 325 MG TAB PO ONE (06:18)
[2017-07-19] MEDS ORDERED: LR 1,000 ML IV ONE (06:19)
--- NOTE | 2017-07-19 06:42 | PDANEPAE ---
ANE History of Present Illness OA here for R TKA ANE Past Medical History - Cardiovascular History Hx Hypertension: Yes Hx Arrhythmias: Yes Hx Chest Pain: No Hx Coronary Artery / Peripheral Vascular Disease: No Hx CHF / Valvular Disease: No Hx Palpitations: No Cardiovascular History Comment: afib- hx of cardioversion 11/2016. stopped warfarin 04/10/[address] Elias. hyperlipidemia - Pulmonary History Hx COPD: No Hx Asthma/Reactive Airway Disease: No Hx Recent Upper Respiratory Infection: No Hx Oxygen in Use at Home: No Hx Sleep Apnea: Yes Sleep Apnea Screening Result - Last Documented: Positive Pulmonary History Comment: moderate jaylin positive- sleeps on side doesn't qualify for cpap - Neurologic History Hx Cerebrovascular Accident: No Hx Seizures: No Hx Dementia: No - Endocrine History Hx Diabetes: No - Renal History Hx Renal Disorders: No Renal History Comment: current - Liver History Hx Hepatic Disorders: No - Neurological & Psychiatric Hx Hx Neurological and Psychiatric Disorders: Yes Neurological / Psychiatric History Comment: hx of depression, - Cancer History Hx Cancer: Yes Cancer History Comment: skin ca basal cell - Congenital Disorder History Hx Congenital Disorders: No - GI History Hx Gastrointestinal Disorders: No - Other Health History Other Health History: 2 areas of dry skin on legs - Chronic Pain History Chronic Pain: Yes (bilat knees,both feet) - Surgical History Prior Surgeries: Left knee surgery- scope. egd's/ colonoscopies. right hand surgery. oral surgery x1 with general. tonsillectomy many years. ago- with ether. hernia repair 20 yrs ago ANE Review of Systems Review of Systems: - Exercise capacity METS (RN): 4 METS ANE Patient History - Allergies Allergies/Adverse Reactions: No Known Allergies Allergy (Verified 06/29/17 10:35) - Home Medications Home medications: home medication list seen and reviewed Home Medications: lamoTRIgine [LamICTAL 100 MG (*)] 200 mg PO DAILY 04/13/17 [Last Taken 07/19/17 04:30] Aspirin [Aspirin 325 mg (*)] 162.5 mg PO DAILY 06/23/17 [Last Taken 07/12/17] Azelastine [Astelin Nasal [place] (RX)] 1 sprays EACHNARE BID 06/23/17 [Last Taken 07/18/17 17:00] Cholecalciferol Vit D3 [Vitamin D3 (*)] 1,000 units PO DAILY 06/23/17 [Last Taken 07/05/17] Diltiazem HCl [Cartia Xt] 120 mg PO DAILY 06/23/17 [Last Taken 07/19/17 04:30] Fluticasone Nasal [Flonase Nasal [place] (RX)] 1 sprays NASAL BID 06/23/17 [Last Taken 07/18/17 17:00] Herbals/Supplements -Info Only 1 ea PO DAILY 06/23/17 [Last Taken 07/05/17] Simvastatin [Zocor] 20 mg PO DAILY 06/23/17 [Last Taken 07/19/17 04:30] Vitamin B Complex [Super B-50 Complex] 1 each PO DAILY 06/23/17 [Last Taken 12/13] buPROPion XL [Wellbutrin Xl] 150 mg PO DAILY 06/23/17 [Last Taken 07/19/17 04:30 ] CeleBREX 07/19/17 [Last Taken 07/19/17 04:30] - NPO status NPO Status: no food or drink >8 hours - Anes Hx Anes Hx: no prior problems - Smoking Hx Smoking Status: Former smoker - Alcohol Use Alcohol Use: Rarely - Family Anes Hx Family Anes Hx: none Family Hx Anesthesia Complications: none ANE Labs/Vital Signs - Vital Signs Vital Signs: reviewed preoperatively; see RN documention for details Height: 185.42 cm Weight: 113.398 kg ANE Physical Exam - Airway Neck exam: FROM Mallampati Score: Class 2 Mouth exam: poor dentition, dentures Mouth image: 1 - missing 2 - missing - Pulmonary Pulmonary: no respiratory distress - Cardiovascular Cardiovascular: regular rate and rhythym - ASA Status ASA Status: III ANE Anesthesia Plan Anesthesia Plan: GA with mask, spinal Regional Anesthesia: adductor canal FNB Total IV Anesthesia: Yes
[2017-07-19] MEDS ORDERED: MIDAZOLAM 2 MG/2 ML VIAL IVP ONE (06:48)
[2017-07-19] MEDS ORDERED: ceFAZolin 1 GM/5 ML SYR ONE (06:52)
[2017-07-19] MEDS ORDERED: VANCOMYCIN 1 GM VIAL ONE ×2 (06:53→07:57)
[2017-07-19] MEDS ORDERED: PROPOFOL/EMULSION 500 MG/50 ML BOTTLE IV ONE ×2 (06:54→08:13)
[2017-07-19] MEDS ORDERED: LIDOCAINE 2% JELLY 5 ML TUBE ONE (07:45)
--- NOTE | 2017-07-19 09:12 | POSTOPPROG ---
Post Op Note Date of Operation: 07/19/17 Surgeon: Abner Vargas Top Cleaner: Stuart Anesthesiologist: Lupe Anesthesia: IV Sedation, Spinal Post-op Diagnosis: Right knee severe degenerative arthritis Procedure: Right total knee arthroplasty Inf/Abcess present in the surg proc area at time of surgery?: No EBL: 50-100
[2017-07-19] MEDS ORDERED: CYCLOBENZAPRINE 10 MG TAB PO PRN (09:24)
[2017-07-19] MEDS ORDERED: BISACODYL 10 MG SUPP PR PRN (09:24)
[2017-07-19] MEDS ORDERED: NS 500 ML IV PRN (09:24)
[2017-07-19] MEDS ORDERED: ONDANSETRON 4 MG/2 ML VIAL IVP PRN ×2 (09:24→10:56)
[2017-07-19] MEDS ORDERED: diphenhydrAMINE 25 MG CAP PO PRN (09:24)
[2017-07-19] MEDS ORDERED: MAGNESIUM HYDROXIDE 30 ML UDCUP PO PRN (09:24)
[2017-07-19] MEDS ORDERED: PROMETHAZINE HCL 25 MG/ML INJ IVP PRN (09:24)
[2017-07-19] MEDS ORDERED: POLYETHYLENE GLYCOL 3350 17 GM PKT PO PRN (09:24)
[2017-07-19] MEDS ORDERED: traMADol 50 MG TAB PO PRN (09:24)
[2017-07-19] MEDS ORDERED: DIPHENOXYLATE/ATROPINE LOMOTIL 1 TAB PO PRN (09:24)
[2017-07-19] MEDS ORDERED: ONDANSETRON DISINTEGRATING 4 MG TAB PO PRN (09:24)
[2017-07-19] MEDS ORDERED: KETOROLAC 30 MG/1 ML SDV IVP PRN (09:24)
[2017-07-19] MEDS ORDERED: LACTULOSE 20 GM/30 ML UDCUP PO PRN (09:24)
[2017-07-19] MEDS ORDERED: oxyCODONE IR 5 MG TAB PO PRN (09:24)
[2017-07-19] MEDS ORDERED: PROMETHAZINE HCL 25 MG SUPPR PR PRN (09:24)
[2017-07-19] MEDS ORDERED: TEMAZEPAM 15 MG CAP PO PRN (09:24)
[2017-07-19] MEDS ORDERED: LR 1,000 ML IV SCH (09:30)
--- NOTE | 2017-07-19 10:08 | GOP ---
[f rep st] OPERATIVE REPORT DATE OF OPERATION: 07/19/2017 SURGEON: Abner Vargas MD [facility] DIRECTOR: Sebastian Mckeon and Aaron Sin. ANESTHESIA: A combination of Marcaine, spinal, IV sedation, and adductor canal block. PREOPERATIVE DIAGNOSIS: Right knee degenerative arthritis. POSTOPERATIVE DIAGNOSIS: Right knee degenerative arthritis. PROCEDURE PERFORMED: Right total knee arthroplasty, cemented, posterior stabilized, Garcia [employer] Nephew Journey 2. FINDINGS: DESCRIPTION OF PROCEDURE: The patient was given 2 g of IV Ancef preoperatively within 60 minutes of surgery. He also received IV tranexamic acid at a dose of 10 mg/kg. He was placed on the operating room table and given spinal anesthesia with Marcaine by Dr. Andrade. He was then placed supine and giv en IV sedation. A Mari catheter was not used. He wore a MARIBEL stocking and SCD on the nonoperative l eg. A bolster was placed under his right hip to prevent excessive external rotation of the leg. His right lower extremity was prepped with ChloraPrep from the upper thigh tourniquet to the tips of the toes. It was draped free using sterile sheets, stockinette, and Ioban plastic adhesive drape. His lower leg was wrapped with compressive Coban. The leg was exsanguinated with elevation and a 6-inch compressive wrap, and the pneumatic tourniquet was inflated to 275 mmHg. The [employer] Organization time-out was performed to verify the correct patient identity and the c orrect surgical side and site. The [place] time-out was also performed. The [employer] leg holding device was sterilely attached to the operating room table and used throughout the procedure to help position the knee. A straight midline incision was made centered on the patell a. Subcutaneous tissues were sharply divided, and hemostasis was obtained using electrocautery. A m edial subcutaneous flap was developed, and the capsule and synovium were opened in a medial parapatel lar fashion. He had significant degenerative changes in his medial compartment. His medial capsule and periosteum were elevated off the rim and medial tibial plateau all around to the posteromedial co rner. His medial collateral ligament was released just enough to balance the medial side of the knee . In order to improve exposure, his patella was prepared first. The original thickness of the patella was measured. Peripheral osteophytes were removed. I cut a flat surface on the back of the patella. He was sized for a 41 mm resurfacing component. He had a very large patella and the 41 mm was the largest size. I removed enough bone from the patella such that the remaining bone plus the thickness of the patellar component recreated the original thickness of the patella. The composite thickness was 25 mm. The intramedullary alignment guide system was used to set up the distal femoral cut. The distal femu r was cut in 5 degrees of valgus. I made a +2 mm cut on the distal femur. The sizing jig was used t o determine proper femoral sizing. I shifted the size 8 jig anteriorly 2 mm in order to accommodate the size 8 without notching the anterior cortex. The 5 in 1 cutting block was applied, and the anter ior and posterior condylar cuts and chamfer cuts were made. The final jig was used to remove the patel tral portion of the distal femur to accommodate the posterior stabilized femoral component. I was ca reful to determine proper rotation by referencing off Whitesides line and other bony landmarks. Each cut was checked for accuracy before and after it was made. The femur was sized for a size 8 posteri or stabilized component. Next, the tibia was prepared. The proximal tibial cut was made using the extramedullary alignment gu erika system. The cut was made in a few degrees of posterior slope. I was careful to achieve proper v arus valgus alignment and proper rotation. The posterior compartment was cleared of meniscal remnant s. Osteophytes were removed from the back of the femoral condyles. With a 9 mm insert he was a yanira le tight in both flexion and extension. I went ahead and cut an additional 2 mm off the proximal tib ia. I then checked the flexion extension gaps, and they were equal, balanced and rectangular. The t ibia was sized for a size 7 component. With the trial components in place, I selected the 9 mm polye thylene posterior stabilized tibial insert. The knee came to full extension and flexed to 125 degree s. There was no overstuffing in flexion. His collateral ligaments were stable and balanced in 90 de grees of flexion and full extension. The trial patellar button was applied, and patellar tracking wa s checked. Tracking was excellent without any digital pressure. I used the saw to bevel the medial and lateral edges of the patella where the patellar bone was extending beyond the plastic patellar co mponent. 40 mL of the joint anesthetic cocktail were injected into the posterior capsule, the periarticular st ructures, the quadriceps muscle and tendon areas, and the subcutaneous tissues along the skin edges. A second dose of IV tranexamic acid was given at 10 mg/kg. The surfaces were prepared for cementing. They were carefully cleaned with the pulsating lavage irri gation and thoroughly dried. The CarboJet device was used to blow dry the cancellous surfaces. A do uble batch of high viscosity methylmethacrylate cement with 2 g of powdered vancomycin added was mixe d. While it was still in a doughy state, all [address] components were cemented in place. Excess cement was removed before it hardened. The 9 mm tibial insert was re-tried and was the proper thickness. The actual component was inserted and locked into place. The knee was thoroughly irrigated 1 final time with a dilute Betadine solution. The tourniquet was d eflated and the total tourniquet time was 56 minutes. The vastus medialis portion of the extensor mechanism was repaired with several interrupted figure-of -eight #2 FiberWire sutures. The capsule and synovium were closed first with multiple interrupted [id number] 0 PDS sutures, followed by a running #2 barbed Ethicon Stratafix PDO suture. The subcu taneous tissues were closed with a running 0 barbed Ethicon Stratafix Monoderm suture. The skin was closed with a running 3-0 barbed Ethicon Stratafix Monoderm subcuticular suture. The skin edges were sealed with half-inch Steri-Strips. The wound was covered with a large Mepilex waterproof sterile d ressing and a 6-inch compressive wrap. A long-leg MARIBEL stocking and SCD were applied, followed by the cooling device. He wore a stocking and SCD on the opposite leg during the procedure. I used a size 8 cemented Garcia [employer] Nephew Oxinium posterior stabilized femoral component, a size 7 ce mented tibial base plate, a 9 mm posterior stabilized tibial insert and a 41 mm cemented round all-po lyethylene resurfacing patellar component. The estimated blood loss following deflation of the tourniquet was about 100 cc. The sponge and needle count were correct on 2 occasions. The [facility] was [facility] from anesthesia[facility] sat isfactory condition. There were no recognized intraoperative complications. In the PACU, for additi onal postoperative pain control, Dr. Andrade performed an adductor canal block with an indwelling dana ter. Sebastian Mckeon and Aaron Sin acted as surgical assistants. Their assistance was a medical necess ity for safe completion of the procedure. /[id number]/MODL
[2017-07-19] MEDS ORDERED: OXYCODONE/APAP 5/325 TAB PO PRN (10:56)
[2017-07-19] MEDS ORDERED: HYDROCODONE/APAP 5/325 TAB PO PRN (10:56)
[2017-07-19] MEDS ORDERED: ACETAMINOPHEN 500 MG TAB PO PRN (10:56)
[2017-07-19] MEDS ORDERED: NALOXONE HCL 0.4 MG/ML INJ IVP PRN (10:56)
[2017-07-19] MEDS ORDERED: fentaNYL 100 MCG/2 ML INJ IVP PRN (10:56)
[2017-07-19] MEDS ORDERED: HYDROmorphONE/DILAUDID 1 MG/ML INJ IVP PRN (10:56)
--- NOTE | 2017-07-19 10:59 | POSTANESTH ---
Post Anesthetic Evaluation Cardiovascular Status: Normal, Stable, Similar to Pre-Op Cond Respiratory Status: Normal, Stable, Similar to Pre-op Cond. Level of Consciousness/Mental Status: Can Participate in Eval, Alert and Oriented Pain Control: Adequate, Prn Tx Ordered Nausea/Vomiting Control: Adequate, Prn Tx Ordered Complications Possibly Related to Anesthesia: None Noted
[2017-07-19] MEDS: ACETAMINOPHEN 325 MG TAB PO SCH ×3 (12:34→23:57)
[2017-07-19] MEDS: ceFAZolin 2 GM/SWFI 2 GM/20 ML SYR IVP SCH ×2 (13:30→21:41)
[2017-07-19] MEDS: TRANEXAMIC ACID 650 MG TAB PO SCH ×2 (16:36→23:57)
[2017-07-19] MEDS: SENNOSIDES/DOCUSATE SODIUM TAB PO SCH (21:41)
[2017-07-19] MEDS: FAMOTIDINE 20 MG TAB PO SCH (21:42)
[2017-07-19] MEDS: AZELASTINE NASAL MDI EACHNARE SCH (22:12)
[2017-07-19] MEDS: FLUTICASONE NASAL 120 SPRAYS/16 GM MDI EACHNARE SCH (22:12)
[2017-07-19] MEDS: ASPIRIN 325 MG TAB PO SCH (22:14)
[2017-07-20] MEDS: ACETAMINOPHEN 325 MG TAB PO SCH (05:19)
[2017-07-20 07:30] VITALS: BP 139/76; RESP 16; TEMP 98
--- NOTE | 2017-07-20 07:34 | POSTANESTH ---
Post Anesthetic Evaluation Cardiovascular Status: Normal, Stable, Similar to Pre-Op Cond Respiratory Status: Normal, Stable, Similar to Pre-op Cond. Level of Consciousness/Mental Status: Can Participate in Eval, Alert and Oriented Pain Control: Adequate, Prn Tx Ordered Nausea/Vomiting Control: Adequate, Prn Tx Ordered Complications Possibly Related to Anesthesia: None Noted Notes: Pt seen and examined, POD 1 s/p R TKA w AC continuous catheter. Pt reports excellent pain control. Able to weight bear and partake of physical therapy. No s/sx LA tox. No itchiness, nausea. Catheter site c/d/i, no e/e/e. Ropivicaine 0.5% 25 ml injected after meticulous aspiration and q5 mls thereafter, neg heme, pt tolerated well. Catheter d/c'd, atraumatic, tip intact.
--- NOTE | 2017-07-20 07:42 | SOAPPROG ---
SOAP Progress Note Assessment/Plan: Assessment: Awake and alert. Mild pain so far. Has been up and walking. H/H is good. Films look good. Plan:Continue PT Home later today. 07/20/17 07:41 Objective: Vital Signs Temp Pulse Resp BP Pulse Ox 36.7 C 73 16 139/76 H 92 07/20/17 07:30 07/20/17 07:30 07/20/17 07:30 07/20/17 07:30 07/20/17 07:30 Laboratory Results 07/20/17 04:48 07/19/17 07/20/17 07/21/17 05:59 05:59 05:59 Intake Total 2665 Output Total 2475 Balance 190 ICD10 Worksheet Patient Problems: Problems Problem Status Onset Osteoarthritis of right knee Acute E coli bacteremia Acute Prostatitis, acute Acute Rapid atrial fibrillation Acute Urethral stricture Acute
[2017-07-20] MEDS: ASPIRIN 325 MG TAB PO SCH (07:55)
[2017-07-20] MEDS: AZELASTINE NASAL MDI EACHNARE SCH (07:56)
[2017-07-20] MEDS: FAMOTIDINE 20 MG TAB PO SCH (07:57)
[2017-07-20] MEDS: FLUTICASONE NASAL 120 SPRAYS/16 GM MDI EACHNARE SCH (07:58)
[2017-07-20] MEDS: SENNOSIDES/DOCUSATE SODIUM TAB PO SCH (07:59)
[2017-07-20 08:01] VITALS: PULSE 69
[2017-07-20] MEDS: TRANEXAMIC ACID 650 MG TAB PO SCH (08:04)
[2017-07-20] MEDS ORDERED: lamoTRIgine 100 MG TAB PO SCH (09:00)
[2017-07-20] MEDS ORDERED: ATORVASTATIN CALCIUM 10 MG TAB PO SCH (09:00)
[2017-07-20] MEDS ORDERED: NON-FORMULARY NEW DRUG (Simvastatin [Zocor] 20 MG) PO SCH (09:00)
[2017-07-20] MEDS ORDERED: DILTIAZEM CD 120 MG CAP PO SCH (09:00)
[2017-07-20] MEDS ORDERED: FERROUS SULFATE 140 MG TAB.ER PO SCH (09:00)
[2017-07-20] MEDS ORDERED: buPROPion XL 150 MG TAB PO SCH (09:00)
[2017-07-20 09:59] VITALS: O2SAT 94
--- NOTE | 2017-07-20 10:21 | ASMTCMCOM ---
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 PT/OT clear pt for home. Pt has outpatient PT scheduled. No CM d/c needs identified. Date Signed: 07/20/2017 10:20 AM Electronically Signed By:LAXMI Catalan
== END 2017-07-20 12:49 | disposition home or self-care (01) ==
LOC: F3N 07-19 05:42 → INTOOBSV 07-19 05:42 → F3N 07-19 10:08
PROVIDERS: ADMIT Orthopaedic Surgery; ATTEND Orthopaedic Surgery
PROC: 0SRC0J9 Replacement of Right Knee Joint with Synthetic Substitute, Cemented, Open Approach (ICD-10-PCS; principal; 2017-07-19 07:15)
DX: M17.0 Bilateral primary osteoarthritis of knee (principal); E78.5 Hyperlipidemia, unspecified; G47.33 Obstructive sleep apnea (adult) (pediatric); Z86.79 Personal history of other diseases of the circulatory system; Z79.82 Long term (current) use of aspirin; Z87.891 Personal history of nicotine dependence
CPT/HCPCS: 27446; 73560; 77073; 88311; 97116; 97161; 97165; 97530; C1713; C1776; G8978; G8979; G8980; G8987; G8988; G8989; J0171; J0690; J1100; J1885; J2250; J2405; J2704; J2795; J3370